=== PATIENT | male | born 1945 | race Caucasian/White ===

== ENCOUNTER 2016-08-25 11:12 | Emergency (ER) | payer MEDICARE, MEDICAID ==
[2016-08-25] MEDS ORDERED: Ketorolac Tromethamine 30 MG/ML VIAL ONE (11:56)
--- NOTE | 2016-08-25 13:02 | PICIS ---
[facility] EMERGENCY RECORD TRIAGE (FriAug 25, 2016 11:27 AWAT) TRIAGE NOTES: LEFT LEG PAIN- CHRONIC, BUT UNBEARABLE NOW. (FriAug 25, 2016 11:27 AWAT) PATIENT: NAME: Moy Boyle, AGE: 71, GENDER: male, : Sat 1945, TIME OF GREET: FriAug 25, 2016 11:12, PREFERRED LANGUAGE: Israeli, ETHNICITY: Not or , FALL RISK: NO, ECODE BILLING MAP: [facility], SSN: [id number], Zip Code: [address], KG WEIGHT: 92.99, PHONE: , , , PERSON ID: [id number], PCP: DO Castañeda Hillary. (FriAug 25, 2016 11:27 AWAT) COMPLAINT: LEG PAIN. ([place] Aug 25, 2016 11:27 AWAT) ADMISSION: URGENCY: 4 Non Urgent, ADMISSION SOURCE: Home, TRANSPORT: Walk-in, BED: ED -05. ([place] Aug 25, 2016 11:27 AWAT) SIRS SCORING: Heart Rate 55-109 (0), Temp range 96.8-101.1 (0), respiratory rate 12-24 (0), Mental Status altered: no (0). (11:37 AWAT) TRIAGE SCREENING: Suicide risk, PT LAUGHES ABOUT THIS, AND SAYS, "WELL HELL NO I'M NOT SUICIDAL, BUT IF THIS PAIN KEEPS ON I MIGHT GET THAT WAY"... (11:37 AWAT) PROVIDERS: TRIAGE NURSE: Philippe Arroyo RN. ([place] Aug 25, 2016 11:27 AWAT) VITAL SIGNS: BP 163/85, Pulse 69, Resp 18, Temp 97.0, (Tympanic), Pain 10, (Constant), O2 Sat 97, on Room Air, Time 08/25/2016 11:26. (11:26 AWAT) PREVIOUS VISIT ALLERGIES: amLODIPine, cetirizine, traMADol, UltRAM. ([place] Aug 25, 2016 11:27 AWAT) amLODIPine, cetirizine, traMADol, UltRAM. (11:37 AWAT) KNOWN ALLERGIES ALL STATINS (Unconfirmed) amLODIPine: Severity: Severe, Source: Other Medical Record, - SWELLING cetirizine: Source: Other Medical Record Cipro tablet codeine sulfate: Source: Patient, - it makes the pain worse traMADol: Source: Patient, - makes me claustrophobic Tylenol-Codeine #3 UltRAM (Unconfirmed): Source: Other Medical Record, - CLAUSTROPHOBIC CURRENT MEDICATIONS (11:32 AWAT) Aspirin Childrens: TABLET, CHEWABLE : Strength - 81 mg : ORAL Patient Dose: 81 mg Oral once a day. lisinopril: TABLET : Strength - 5 mg : ORAL Patient Dose: 5 mg Oral 2 times a day. Coreg: TABLET : Strength - 3.125 mg : ORAL Patient Dose: 3.125 mg Oral 2 times a day. &a-1R&a+25V*p+0X*v4794X*c202B*c15G*c2P*p-0X&a-25V&a+1R Name: Moy Boyle : 1945 M71 MedRec: [id number] AcctNum: [id number] Prepared: Maria C Aug 25, 2016 15:32 by Interface Page 1 of 6 pMD [facility] EMERGENCY RECORD gabapentin: CAPSULE : Strength - 300 mg : ORAL Patient Dose: 300 mg Oral 2 times a day (before meals). Indocin: CAPSULE : Strength - 50 mg : ORAL Patient Dose: * tab(s) Oral See Notes.2 TWICE A DAY FOR 3 DAYS, THEN 1 TWICE A DAY FOR 3 DAYS, THEN 1 DAILY. Valium: TABLET : Strength - 5 mg : ORAL Patient Dose: 1 tab(s) Oral every 6 hours PRN.FOR TIGHTNESS OR MUSCLE SPASMS IN THE BACK. VITAL SIGNS VITAL SIGNS: BP: 163/85, Pulse: 69, Resp: 18, Temp: 97.0 (Tympanic), Pain: 10 (Constant), O2 sat: 97 on Room Air, Time: 08/25/2016 11:26. (11:26 AWAT) BP: 143/73, Pulse: 66, Resp: 16, Temp: 97.2, Pain: 10, O2 sat: 96 on RA, Time: 08/25/2016 12:10. (12:10 AWAT) NURSING ASSESSMENT: EXTREMITY LOWER (11:35 AWAT) CONSTITUTIONAL: Complex assessment performed, Patient arrives ambulatory, Unsteady gait, USES A WALKER FOR BALANCE., History obtained from patient, Patient appears comfortable, Patient cooperative, Patient alert, Oriented to person, place and time, Skin warm, Skin dry, Skin normal in color, Mucous membranes pink, Mucous membranes moist, Patient is well-groomed, Patient complains of BILATERAL LEG PAIN, MORE TO THE LEFT., CHRONIC PAIN DUE TO BACK PROBLEMS. PAIN: aching pain, BILATERAL LEGS PRIMARILY, ALONG WITH THE CHRONIC BACK PAIN.,, on a scale 0-10 patient rates pain as 10, PT LAUGHES, AND SAYS IT'S 10/10. IT'S MISREABLE. SAYS HE IS OUT OF PAIN MEDICATION, AND TYLENOL/MOTRIN/ADVIL DOESN'T TOUCH IT.., Pain exacerbated by nothing, Nothing has been tried to alleviate the pain. LEFT LOWER EXTREMITY: Left lower extremity assessment findings include capillary refill less than 2 seconds, Skin color normal, Skin temperature warm, Distal sensation intact, Muscle tone normal, +1 edema present, dorsalis pedis pulse is +2, Notes: SLIGHT BLE EDEMA, COLOR GOOD, PULSES PALPABLE. RIGHT LOWER EXTREMITY: Right lower extremity assessment findings include capillary refill less than 2 seconds, Skin color normal, Skin temperature warm, Distal sensation intact, Muscle tone normal, +1 edema present, dorsalis pedis pulse is +2, Notes: SLIGHT BLE EDEMA, COLOR GOOD, PULSES PALPABLE. NOTES: Patient tolerated procedure well. SAFETY: Side rails up, Cart/Stretcher in lowest position, Call light within reach, Hospital ID band on, Physician notified of above findings. NURSING PROCEDURE: DISCHARGE NOTE (12:10 AWAT) &a-1R&a+25V*p+0X*u9373T*c202B*c15G*c2P*p-0X&a-25V&a+1R Name: Moy Boyle : 1945 M71 MedRec: [id number] AcctNum: [id number] Prepared: Maria C Aug 25, 2016 15:32 by Interface Page 2 of 6 pMD [facility] EMERGENCY RECORD DISCHARGE: Patient discharged to home, ambulating with walker, driving self, unaccompanied, Summary of Care printed/ provided, Patient requested and was provided an electronic copy of Discharge Instructions, Transition record given to patient, Discharge instructions given to patient, Simple or moderate discharge teaching performed, by obed barahona, Prescriptions given and instructions on side effects given, Name of prescription(s) given: TYLENOL W CDN, Above person(s) verbalized understanding of discharge instructions and follow-up care, Patient discharged by, OBED BARAHONA, Patient treated and evaluated by physician. BELONGINGS: Belongings remain with patient, Valuables remain with patient. NOTES: Emotional support needed and given, Patient tolerated procedure well. SAFETY: Side rails up, Cart/Stretcher in lowest position, Call light within reach, Hospital ID band on, Physician notified of above findings. VITAL SIGNS: BP: 143, / 73, Pulse: 66, Resp: 16, Temp: 97.2, Pain: 10, O2 sat: 96, on: RA, Time: 1210. MEDICATION ADMINISTRATION SUMMARY Drug Name: Toradol intramuscular, Dose Ordered: 30 mg, Route: Intramuscular, Status: Given, Time: 11:57 08/25/2016, Detailed record available in Medication Service section. MEDICATION SERVICE (11:57 LHOD) Toradol intramuscular: Order: Toradol intramuscular (ketorolac tromethamine) - Dose: 30 mg : Intramuscular POTENTIAL CONTRAINDICATED INTERACTION: Aspirin Childrens - Benefits outweigh risks Ordered by: Roge Ulrich MD Entered by: MD Maria C Bunn Aug 25, 2016 11:45 , Acknowledged by: JUN Carpenter Aug 25, 2016 11:55 Documented as given by: JUN Carpenter Aug 25, 2016 11:57 Patient, Medication, Dose, Route and Time verified prior to administration. IM medication, Amount given: 30mg, Medication administered to right buttock, Correct patient, time, route, dose and medication confirmed prior to administration, Patient advised of actions and side-effects prior to administration, Allergies confirmed and medications reviewed prior to administration, Administered by obed barahona, Patient in position of comfort, Side rails up, Cart in lowest position. HPI GENERAL (11:53 LHOD) CHIEF COMPLAINT: Patient presents for evaluation of BILATERAL LEG PAIN. HISTORIAN: History provided by patient. TIME COURSE: PT REPORTS HE HAS HAD BILATERAL LEG PAIN SINCE EARLY JUNE WHEN HE HAD A LUMBAR STEROID INJECTION BY &a-1R&a+25V*p+0X*n2267Y*c202B*c15G*c2P*p-0X&a-25V&a+1R Name: Moy Boyle : 1945 M71 MedRec: [id number] AcctNum: [id number] Prepared: Maria C Aug 25, 2016 15:32 by Interface Page 3 of 6 pMD [facility] EMERGENCY RECORD ALEKSANDR. PT REPORTS HE CONTINUES TAKING MELOXICAM AND GABAPENTIN WITHOUT RELIEF. NO RECENT TRAUMA. REPORTS HE HAS AN APPOINTMENT "WITH A SURGEON" ON August. ROS (11:55 LHOD) CONSTITUTIONAL: Historian denies fever. CARDIOVASCULAR: Historian denies chest pain, denies edema. RESPIRATORY: Historian denies shortness of breath. GI: Historian denies abdominal pain, denies nausea, denies vomiting. UMBILICAL HERNIA, HE REPORTS SINCE STEROID INJECTION. GENITOURINARY MALE: Historian denies hematuria. MUSCULOSKELETAL: Historian reports back pain, denies neck pain. PAIN BOTH LEGS. SKIN: Historian denies rash. NEUROLOGIC: Historian denies headache, REPORTS SOME NUMBNESS OF RIGHT LEG SINCE JUNE. HEMO/LYMPHATIC: Historian denies easy bruising. NOTES: All systems reviewed, negative except as described above. 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 COPD. (11:37 AWAT) MALE SURGICAL HISTORY: Surgical history of coronary artery bypass graft surgery, three vessels, Surgical history of hernia repair, LUMBAR STEROID INJECTION Surgical history of coronary artery bypass graft surgery, three vessels, Date of surgery 09/2014, DOUBLE HERNIA - [facility] 1965.. (11:37 AWAT) PSYCHIATRIC HISTORY: Notes: DENIES. (11:37 AWAT) SOCIAL HISTORY: Patient denies alcohol use, Patient is a former drug user, abused marijuana, Patient is a former tobacco user, Patient denies alcohol use, Patient denies drug use, Patient is a former tobacco user, smoked cigarettes, Lives at home, alone, Patient denies alcohol use, Patient denies drug use, Patient is a former tobacco user, Lives at home, smoked cigarettes, Patient quit smoking more than 10 years ago. (11:37 AWAT) NOTES: Nursing records reviewed. (15:26 LHOD) PHYSICAL EXAM (15:24 LHOD) CONSTITUTIONAL: Vital signs reviewed, Patient afebrile, Pulse normal, Blood pressure, hypertensive, Respiratory rate normal, Patient alert and oriented to person, place and time, NO OBVIOUS DISTRESS. &a-1R&a+25V*p+0X*v0852C*c202B*c15G*c2P*p-0X&a-25V&a+1R Name: Moy Boyle : 1945 M71 MedRec: [id number] AcctNum: [id number] Prepared: Maria C Aug 25, 2016 15:32 by Interface Page 4 of 6 pMD [facility] EMERGENCY RECORD HEAD: Head exam included findings of head atraumatic. RESPIRATORY CHEST: Respiratory exam included findings of no respiratory distress, Breath sounds clear. CARDIOVASCULAR: Cardiovascular exam included findings of heart rate regular rate and rhythm. ABDOMEN MALE: Abdominal exam included findings of abdomen nontender. BACK: Back exam included findings of normal inspection, range of motion normal, no tenderness, no pain with straight leg raise, PT ABLE TO SIT UP AND LAY DOWN WITHOUT SIGNIFICANT PAIN. UPPER EXTREMITY: Upper extremity exam normal. LOWER EXTREMITY: Lower extremity exam normal, Pedal pulse normal, no edema, no calf tenderness. NEURO: Neuro exam findings include patient oriented to person, place and time, Speech normal. SKIN: no rash. EVENTS TRANSFER: Triage to Emergency Main ED -05. (Maria C Aug 25, 2016 11:27 AWAT) Removed from Emergency Main ED -05. (12:21 AWAT) PROBLEM LIST No recorded problems DIAGNOSIS (11:46 LHOD) FINAL: PRIMARY: BILATERAL NEUROPATHIC LEG PAINS. DISPOSITION PATIENT: Disposition Type: Discharge, Disposition: *Discharge Home, Condition: Good. (11:46 LHOD) Patient left the department. (12:21 AWAT) INSTRUCTION (11:49 LHOD) DISCHARGE: NEUROPATHY, PERIPHERAL. FOLLOWUP: DO Castañeda Hillary, [facility], [address] [place] [id number], , Follow up with Primary Care Physician in 3-4 days, Follow up with Specialist as soon as possible. SPECIAL: CONTINUE YOUR MELOXICAM. CONTACT OR YOUR PRIMARY DOCTOR TOMORROW FOR FOLLOW UP. PRESCRIPTION (11:48 LHOD) Tylenol-Codeine #3: TABLET : 300 mg-30 mg : ORAL : Quantity: 1-2 Unit: tab(s) Route: ORAL Schedule: every 4 hours prn Dispense: 30 May substitute. Refills: No Refills POTENTIAL ALLERGY REACTION: 'codeine sulfate [codeine/codeine sulfate]', 'traMADol [tramadol/tramadol HCl]', 'Tylenol-Codeine #3 [acetaminophen/codeine/codeine phosphate]', 'UltRAM &a-1R&a+25V*p+0X*a6735X*c202B*c15G*c2P*p-0X&a-25V&a+1R Name: Moy Boyle : 1945 M71 MedRec: [id number] AcctNum: [id number] Prepared: Maria C Aug 25, 2016 15:32 by Interface Page 5 of 6 pMD [facility] EMERGENCY RECORD [tramadol/tramadol HCl]' Override Rationale: Not a true drug allergy. NOTES: No Refills. IMAGING (12:16 AWAT) *DISCHARGE INSTRUCTIONS RECEIPT: Image captured from scanner. *SUPPLY CHARGE SHEET: Image captured from scanner. ADMIN (15:26 LHOD) DIGITAL SIGNATURE: MD Ulrich Lefayne. Royal: AWAT=JUN Arroyo, Philippe LHOD=MD Ulrich Lefayne &a-1R&a+25V*p+0X*z1912U*c202B*c15G*c2P*p-0X&a-25V&a+1R Name: Moy Boyle : 1945 M71 MedRec: [id number] AcctNum: [id number] Prepared: Maria C Aug 25, 2016 15:32 by Interface Page 6 of 6 pMD MTDD
== END 2016-08-25 12:10 | disposition home or self-care (01) ==
LOC: MADERS 11:12
DX: G57.93 Unspecified mononeuropathy of bilateral lower limbs (principal); I25.2 Old myocardial infarction; I10 Essential (primary) hypertension; E78.5 Hyperlipidemia, unspecified; Z87.891 Personal history of nicotine dependence
CPT/HCPCS: 96372; J1885

== ENCOUNTER 2016-10-28 16:23 | Emergency (ER) | payer MEDICARE, MEDICAID ==
[2016-10-28] MEDS ORDERED: Ketorolac Tromethamine 30 MG/ML VIAL ONE (17:42)
== END 2016-10-28 18:05 | disposition home or self-care (01) ==
LOC: MADERS 16:23
DX: G89.18 Other acute postprocedural pain (principal); M54.6 Pain in thoracic spine; I25.10 Atherosclerotic heart disease of native coronary artery without angina pectoris; I25.2 Old myocardial infarction; J44.9 Chronic obstructive pulmonary disease, unspecified; E78.5 Hyperlipidemia, unspecified; E78.00 Pure hypercholesterolemia, unspecified; F17.210 Nicotine dependence, cigarettes, uncomplicated
CPT/HCPCS: 96372; J1885

== ENCOUNTER 2017-01-18 23:30 | Emergency (ER) | payer MEDICARE, MEDICAID ==
[2017-01-19] MEDS ORDERED: Fluconazole 100 MG TAB ONE (00:46)
[2017-01-19 00:53] LABS: #Lymphocytes 1.6 thou/uL (1.20-3.40); #Monocytes 1.5 thou/uL (0.11-0.59); #Neutrophils 9.4 thou/uL (1.40-6.50); %Basophils 0.3 % (0.0-1.0); %Eosinophils 0.3 % (0.0-10.0); %Lymphocytes 12.7 % (21.0-51.0); %Monocytes 11.9 % (0.0-10.0); %Neutrophils 74.9 % (42.0-75.0); Hemoglobin 14.2 g/dL (14.0-18.0); Mean Corpuscular HGB CONC 34.5 g/dL (32.0-36.0); Mean Corpuscular Hemoglobin 30.4 pg (27.0-31.0); Mean Platelet Volume 10.5 fL (7.4-10.4); Platelet Count 186 thou/uL (130-400); RBC Distribution Width 12.7 % (11.5-14.5); Red Blood Cell (RBC) Count 4.69 mill/uL (4.70-6.10); White Blood Cell (WBC) Count 12.6 thou/uL (4.8-10.8)
[2017-01-19 01:03] LABS: ALT (SGPT) 21 U/L (8-55); AST (SGOT) 21 U/L (5-34); Albumin 4.2 g/dL (3.4-4.8); Alkaline Phosphatase 79 U/L (40-150); Anion Gap 13 mmol/L (10-20); BUN (Urea Nitrogen) 20 mg/dL (8.4-25.7); Bilirubin, Total 0.5 mg/dL (0.2-1.2); Calc. Creatinine Clearance 0 mL/min (70-130); Calcium 9.4 mg/dL (7.8-10.44); Carbon Dioxide 23 mmol/L (23-31); Chloride 104 mmol/L (98-107); Estimated GFR-MDRD 90; Globulin 2.5 g/dL (2.4-3.5); Glucose 136 mg/dL (83-110); Potassium 4.6 mmol/L (3.5-5.1); Protein, Total 6.7 g/dL (5.8-8.1); Sodium 135 mmol/L (136-145)
[2017-01-19 01:12] LABS: Clarity Clear (Clear); Leukocyte Negative (Negative); Nitrite Negative (Negative); Protein, Urine (Dipstick) Negative (Neg-Trace); pH, Urine 5.5 (5.0-9.0)
[2017-01-19 01:13] LABS: Bacteria/HPF None Seen HPF (None Seen); Bilirubin Negative (Negative); Blood, Urine Trace (Negative); Glucose, Urine (Dipstick) Negative (Negative); Urobilinogen 0.2 mg/dL (0.2-1.0)
== END 2017-01-19 02:51 | disposition home or self-care (01) ==
LOC: MADERS 23:30
DX: N39.0 Urinary tract infection, site not specified (principal); B37.2 Candidiasis of skin and nail; M25.561 Pain in right knee; M25.562 Pain in left knee; M54.5 Low back pain; I25.10 Atherosclerotic heart disease of native coronary artery without angina pectoris; I25.2 Old myocardial infarction; I10 Essential (primary) hypertension; J44.9 Chronic obstructive pulmonary disease, unspecified; E78.5 Hyperlipidemia, unspecified; E78.00 Pure hypercholesterolemia, unspecified; Z87.891 Personal history of nicotine dependence
CPT/HCPCS: 36415; 80053; 81001; 83880; 85025; 87086; 99283

== ENCOUNTER 2017-01-24 04:29 | Emergency (ER) | payer MEDICARE, MEDICAID | END 2017-01-24 05:10 | disposition home or self-care (01) | LOC: MADERS 04:29 | DX: G89.29 Other chronic pain (principal); M54.9 Dorsalgia, unspecified; I25.10 Atherosclerotic heart disease of native coronary artery without angina pectoris; I25.2 Old myocardial infarction; I10 Essential (primary) hypertension; J44.9 Chronic obstructive pulmonary disease, unspecified; E78.5 Hyperlipidemia, unspecified; E78.00 Pure hypercholesterolemia, unspecified; Z87.891 Personal history of nicotine dependence; Z79.82 Long term (current) use of aspirin; Z79.899 Other long term (current) drug therapy | CPT/HCPCS: 99283 ==

== ENCOUNTER 2017-07-26 10:31 | Emergency (ER) | payer MEDICARE, MEDICAID | END 2017-07-26 11:38 | disposition home or self-care (01) | LOC: MADERS 10:31 | DX: Z76.0 Encounter for issue of repeat prescription (principal); I10 Essential (primary) hypertension; I25.10 Atherosclerotic heart disease of native coronary artery without angina pectoris; I25.2 Old myocardial infarction; J44.9 Chronic obstructive pulmonary disease, unspecified; E78.5 Hyperlipidemia, unspecified; Z87.891 Personal history of nicotine dependence; Z79.899 Other long term (current) drug therapy | CPT/HCPCS: 99281 ==

== ENCOUNTER 2017-09-14 08:33 | Emergency (ER) | payer MEDICARE, MEDICAID | END 2017-09-14 09:21 | disposition home or self-care (01) | LOC: MADERS 08:33 | DX: G58.9 Mononeuropathy, unspecified (principal); I10 Essential (primary) hypertension; I25.2 Old myocardial infarction; E78.5 Hyperlipidemia, unspecified; Z87.891 Personal history of nicotine dependence; Z79.899 Other long term (current) drug therapy | CPT/HCPCS: 99281 ==

== ENCOUNTER 2017-11-08 11:39 | Emergency (ER) | payer MEDICARE, MEDICAID ==
[2017-11-08 12:26] LABS: Prothrombin Time 13.1 SEC (12.0-14.7)
[2017-11-08 12:28] LABS: Bilirubin Negative (Negative); Blood, Urine Negative (Negative); Clarity Clear (Clear); Glucose, Urine (Dipstick) Negative (Negative); Leukocyte Negative (Negative); Nitrite Negative (Negative); Protein, Urine (Dipstick) Negative (Neg-Trace); Specific Gravity, Urine 1.015 (1.005-1.030); Urobilinogen 0.2 mg/dL (0.2-1.0); pH, Urine 6.5 (5.0-9.0)
[2017-11-08 12:30] LABS: Hemoglobin 15.8 g/dL (14.0-18.0); Mean Corpuscular HGB CONC 32.3 g/dL (32.0-36.0); Mean Corpuscular Hemoglobin 29.3 pg (27.0-31.0); Mean Corpuscular Volume 90.7 fL (80.0-94.0); Red Blood Cell (RBC) Count 5.39 mill/uL (4.70-6.10)
[2017-11-08 12:31] LABS: #Basophils 0.1 thou/uL (0.0-0.2); #Eosinphils 0.6 thou/uL (0.0-0.7); #Monocytes 0.9 thou/uL (0.11-0.59); #Neutrophils 4.4 thou/uL (1.40-6.50); %Basophils 1.8 % (0.0-1.0); %Eosinophils 7.6 % (0.0-10.0); %Lymphocytes 24.8 % (21.0-51.0); %Neutrophils 54.9 % (42.0-75.0); Manual Diff?? NO; Mean Platelet Volume 8.9 fL (7.4-10.4); Platelet Count 226 thou/uL (130-400); RBC Distribution Width 14.2 % (11.5-14.5)
[2017-11-08 12:35] LABS: Bacteria/HPF Rare-Few HPF (None Seen); RBC/HPF 0-3 HPF (0-3); Squamous Epithelial 0-3 HPF (0-3); WBC/HPF None Seen HPF (0-3)
[2017-11-08 12:36] LABS: ALT (SGPT) 19 U/L (8-55); AST (SGOT) 22 U/L (5-34); Albumin 4.3 g/dL (3.4-4.8); Alkaline Phosphatase 92 U/L (40-150); Anion Gap 16 mmol/L (10-20); BUN (Urea Nitrogen) 17 mg/dL (8.4-25.7); Bilirubin, Total 0.7 mg/dL (0.2-1.2); Calc. Creatinine Clearance 0 mL/min (70-130); Calcium 10.1 mg/dL (7.8-10.44); Carbon Dioxide 26 mmol/L (23-31); Chloride 102 mmol/L (98-107); Estimated GFR-MDRD 72; Globulin 3.2 g/dL (2.4-3.5); Glucose 99 mg/dL (83-110); Potassium 4.7 mmol/L (3.5-5.1); Protein, Total 7.5 g/dL (5.8-8.1); Sodium 139 mmol/L (136-145)
== END 2017-11-08 13:04 | disposition home or self-care (01) ==
LOC: MADERS 11:39
DX: R42 Dizziness and giddiness (principal); I10 Essential (primary) hypertension; I25.10 Atherosclerotic heart disease of native coronary artery without angina pectoris; I25.2 Old myocardial infarction; J44.9 Chronic obstructive pulmonary disease, unspecified; E78.5 Hyperlipidemia, unspecified; Z87.891 Personal history of nicotine dependence; Z79.899 Other long term (current) drug therapy
CPT/HCPCS: 36415; 80053; 81001; 83880; 85025; 85610; 85652; 85730; 87040; 87086; 99283

== ENCOUNTER 2018-03-05 18:29 | Emergency (ER) | payer MEDICARE, MEDICAID ==
[2018-03-05 19:55] LABS: #Basophils 0.2 thou/uL (0.0-0.2); #Eosinphils 0.9 thou/uL (0.0-0.7); #Lymphocytes 2.1 thou/uL (1.20-3.40); #Monocytes 1.2 thou/uL (0.11-0.59); #Neutrophils 6.3 thou/uL (1.40-6.50); %Basophils 1.5 % (0.0-1.0); %Eosinophils 8.2 % (0.0-10.0); %Lymphocytes 19.6 % (21.0-51.0); %Monocytes 11.6 % (0.0-10.0); %Neutrophils 59.2 % (42.0-75.0); Hemoglobin 14.6 g/dL (14.0-18.0); Mean Corpuscular HGB CONC 31.3 g/dL (32.0-36.0); Mean Corpuscular Hemoglobin 27.2 pg (27.0-31.0); Mean Corpuscular Volume 86.9 fL (78.0-98.0); Mean Platelet Volume 8.5 fL (7.4-10.4); Platelet Count 242 thou/uL (130-400); RBC Distribution Width 14.2 % (11.5-14.5); Red Blood Cell (RBC) Count 5.37 mill/uL (4.70-6.10); White Blood Cell (WBC) Count 10.6 thou/uL (4.8-10.8)
[2018-03-05 20:03] LABS: Prothrombin Time 13.1 SEC (12.0-14.7)
[2018-03-05 20:04] LABS: PTT 34.3 SEC (22.9-36.1)
[2018-03-05 20:13] LABS: ALT (SGPT) 20 U/L (8-55); AST (SGOT) 26 U/L (5-34); Albumin 4.3 g/dL (3.4-4.8); Alkaline Phosphatase 81 U/L (40-150); Anion Gap 17 mmol/L (10-20); BUN (Urea Nitrogen) 19 mg/dL (8.4-25.7); Bilirubin, Total 0.5 mg/dL (0.2-1.2); CK (CPK) 161 U/L (30-200); Calc. Creatinine Clearance 0 mL/min (70-130); Carbon Dioxide 22 mmol/L (23-31); Chloride 101 mmol/L (98-107); Estimated GFR-MDRD 70; Globulin 3.2 g/dL (2.4-3.5); Glucose 85 mg/dL (83-110); Potassium 4.7 mmol/L (3.5-5.1); Protein, Total 7.5 g/dL (5.8-8.1); Sodium 135 mmol/L (136-145)
[2018-03-05 20:15] LABS: Troponin I 0.014 ng/mL (< 0.028)
[2018-03-05 20:24] LABS: CKMB 8.1 ng/mL (0-6.6)
--- NOTE | 2018-03-05 20:26 | RAD ---
PORTABLE UPRIGHT FRONTAL CHEST RADIOGRAPH 03/05/18 COMPARISON: 11/14/14. HISTORY: Tingling. FINDINGS: There is mild increased linear density in both lung bases which could represent scar, volume loss, or mild infiltrate. There is mild blunting of the costophrenic angles which could signify tiny bilatera l pleural effusions and/or pleural thickening/scar. There is prominent degenerative change involving bilateral glenohumeral joints. There is no alveolar edema or lobar consolidation. Midline sternotomy wires are present. IMPRESSION: Mild bibasilar pleural and parenchymal opacity as detailed above. POS: H
== END 2018-03-05 23:35 | disposition home or self-care (01) ==
LOC: MADERS 18:29
DX: M62.89 Other specified disorders of muscle (principal); E03.9 Hypothyroidism, unspecified; I10 Essential (primary) hypertension; I25.10 Atherosclerotic heart disease of native coronary artery without angina pectoris; J44.9 Chronic obstructive pulmonary disease, unspecified; E78.5 Hyperlipidemia, unspecified; Z87.891 Personal history of nicotine dependence; Z79.899 Other long term (current) drug therapy
CPT/HCPCS: 71045; 80053; 82553; 83880; 84443; 84484; 85025; 85610; 85730; 93005

== ENCOUNTER 2018-03-10 07:05 | Emergency (ER) | payer MEDICARE, MEDICAID ==
[2018-03-10] MEDS ORDERED: Ondansetron ODT 4 MG TAB ONE (07:52)
[2018-03-10] MEDS ORDERED: Mag-Al Plus 1200 MG/1200 MG/120 MG/30 ML UDCUP ONE (07:52)
[2018-03-10] MEDS ORDERED: Lidocaine Viscous Sol 2% 15 ml UD Cup ONE (07:52)
[2018-03-10 08:13] LABS: #Basophils 0.2 thou/uL (0.0-0.2); #Eosinphils 0.7 thou/uL (0.0-0.7); #Lymphocytes 1.7 thou/uL (1.20-3.40); #Monocytes 1.3 thou/uL (0.11-0.59); #Neutrophils 7.3 thou/uL (1.40-6.50); %Basophils 1.4 % (0.0-1.0); %Eosinophils 6.4 % (0.0-10.0); %Lymphocytes 15.4 % (21.0-51.0); %Monocytes 11.7 % (0.0-10.0); %Neutrophils 65.2 % (42.0-75.0); Hemoglobin 15.2 g/dL (14.0-18.0); Mean Corpuscular HGB CONC 32.6 g/dL (32.0-36.0); Mean Corpuscular Volume 86.1 fL (78.0-98.0); Mean Platelet Volume 8.1 fL (7.4-10.4); Platelet Count 209 thou/uL (130-400); RBC Distribution Width 13.8 % (11.5-14.5); Red Blood Cell (RBC) Count 5.43 mill/uL (4.70-6.10); White Blood Cell (WBC) Count 11.2 thou/uL (4.8-10.8)
[2018-03-10] MEDS ORDERED: Ketorolac Tromethamine 30 MG/ML VIAL ONE (08:17)
[2018-03-10 08:32] LABS: ALT (SGPT) 20 U/L (8-55); AST (SGOT) 22 U/L (5-34); Albumin 4.3 g/dL (3.4-4.8); Alkaline Phosphatase 82 U/L (40-150); Anion Gap 17 mmol/L (10-20); BUN (Urea Nitrogen) 17 mg/dL (8.4-25.7); Bilirubin, Total 0.8 mg/dL (0.2-1.2); Calc. Creatinine Clearance 0 mL/min (70-130); Calcium 10.5 mg/dL (7.8-10.44); Carbon Dioxide 21 mmol/L (23-31); Chloride 99 mmol/L (98-107); Estimated GFR-MDRD Greater than 90; Globulin 3.1 g/dL (2.4-3.5); Glucose 107 mg/dL (83-110); Lipase 141 U/L (8-78); Potassium 4.8 mmol/L (3.5-5.1); Protein, Total 7.4 g/dL (5.8-8.1); Sodium 132 mmol/L (136-145)
[2018-03-10 08:58] LABS: Bilirubin Negative (Negative); Blood, Urine Negative (Negative); Clarity Clear (Clear); Glucose, Urine (Dipstick) Negative (Negative); Leukocyte Negative (Negative); Nitrite Negative (Negative); Protein, Urine (Dipstick) Negative (Neg-Trace); Urobilinogen 0.2 mg/dL (0.2-1.0)
--- NOTE | 2018-03-10 08:59 | RAD ---
CHEST 1 VIEW: HISTORY: Chest pain. Abdomen pain. COMPARISON: 03/05/18. FINDINGS: Cardiac silhouette is magnified by projection. Pulmonary vasculature upper limits of normal. Medias tinal is midline with postoperative changes and aortic calcification. Mild bibasilar atelectasis. N o lobar consolidation or evidence of pneumothorax. Severe degenerative changes of the shoulders. IMPRESSION: Borderline pulmonary vascular congestion. Chronic-type findings are stable. POS: H
[2018-03-10 09:06] LABS: RBC/HPF 0-3 HPF (0-3)
[2018-03-10 09:07] LABS: Bacteria/HPF Rare-Few HPF (None Seen); Squamous Epithelial 0-3 HPF (0-3); WBC/HPF 0-3 HPF (0-3)
== END 2018-03-10 09:20 | disposition home or self-care (01) ==
LOC: MADERS 07:05
DX: K29.00 Acute gastritis without bleeding (principal); I10 Essential (primary) hypertension; G25.81 Restless legs syndrome; J44.9 Chronic obstructive pulmonary disease, unspecified; E78.5 Hyperlipidemia, unspecified; Z87.891 Personal history of nicotine dependence; Z79.899 Other long term (current) drug therapy
CPT/HCPCS: 71045; 80053; 81001; 82150; 83605; 83690; 85025; 87086; 96374; J1885; Q0162

== ENCOUNTER 2018-09-06 17:16 | Emergency (ER) | payer MEDICARE, MEDICAID ==
[2018-09-06 18:20] LABS: #Basophils 0.1 thou/uL (0.0-0.2); #Eosinphils 1.1 thou/uL (0.0-0.7); #Lymphocytes 1.9 thou/uL (1.20-3.40); #Monocytes 1.1 thou/uL (0.11-0.59); #Neutrophils 6.7 thou/uL (1.40-6.50); %Basophils 0.9 % (0.0-1.0); %Eosinophils 10.5 % (0.0-10.0); %Lymphocytes 17.5 % (21.0-51.0); %Monocytes 9.7 % (0.0-10.0); %Neutrophils 61.4 % (42.0-75.0); Hemoglobin 14.4 g/dL (14.0-18.0); Mean Corpuscular HGB CONC 33.2 g/dL (32.0-36.0); Mean Corpuscular Hemoglobin 29.6 pg (27.0-31.0); Mean Corpuscular Volume 89.1 fL (78.0-98.0); Mean Platelet Volume 7.9 fL (7.4-10.4); Platelet Count 247 thou/uL (130-400); RBC Distribution Width 12.6 % (11.5-14.5); Red Blood Cell (RBC) Count 4.86 mill/uL (4.70-6.10); White Blood Cell (WBC) Count 10.9 thou/uL (4.8-10.8)
[2018-09-06 18:32] LABS: ALT (SGPT) 19 U/L (8-55); AST (SGOT) 22 U/L (5-34); Albumin 4.6 g/dL (3.4-4.8); Alkaline Phosphatase 99 U/L (40-150); Anion Gap 12 mmol/L (10-20); BUN (Urea Nitrogen) 18 mg/dL (8.4-25.7); Bilirubin, Total 0.7 mg/dL (0.2-1.2); Calc. Creatinine Clearance 0 mL/min (70-130); Calcium 10.3 mg/dL (7.8-10.44); Carbon Dioxide 27 mmol/L (23-31); Chloride 88 mmol/L (98-107); Estimated GFR-MDRD 78; Glucose 95 mg/dL (83-110); Potassium 4.4 mmol/L (3.5-5.1); Protein, Total 7.6 g/dL (5.8-8.1); Sodium 123 mmol/L (136-145)
[2018-09-06] MEDS ORDERED: Furosemide 40 MG/4 ML VIAL ONE (18:50)
--- NOTE | 2018-09-06 19:25 | RAD ---
TWO VIEWS RIGHT HIP: Date: 09-06-18 Comparison: None. History: Pain. FINDINGS: There is mild superior joint space narrowing involving the right hip. There is mild lateral acetabula r osteophyte formation. There is no displaced fracture or evidence of dislocation. Please note that t he medial aspect of the superior and inferior pubic rami are not visualized. IMPRESSION: Degenerative change. No displaced fracture. POS: JIMMY
--- NOTE | 2018-09-06 19:53 | RAD ---
FRONTAL RADIOGRAPH CHEST: Date: 09-06-18 Comparison: 03-10-18 History: Dyspnea. FINDINGS: Midline sternotomy wires are present. Heart and mediastinal contours are stable. Stable prominent deg enerative change involving the glenohumeral joint. Evaluation of the lung bases is limited secondary to body habitus and portable technique. No lobar consolidation or alveolar edema. IMPRESSION: No significant interval change. POS: JIMMY
--- NOTE | 2018-09-06 19:57 | RAD ---
THREE VIEWS RIGHT FOOT: Date: 09-06-18 Comparison: None. History: Pain. FINDINGS: Three views of the right foot demonstrates no displaced fracture or dislocation. There is dorsal soft tissue swelling involving the midfoot which could be inflammatory/infectious or post-traumatic in na ture. There is mild enthesophyte formation at the origin of the plantar aponeurosis. IMPRESSION: Nonspecific soft tissue swelling involving the dorsal aspect of the foot. POS: JIMMY
== END 2018-09-06 19:45 | disposition home or self-care (01) ==
LOC: MADERS 17:16
DX: M79.81 Nontraumatic hematoma of soft tissue (principal); E87.1 Hypo-osmolality and hyponatremia; I10 Essential (primary) hypertension; I25.10 Atherosclerotic heart disease of native coronary artery without angina pectoris; I25.2 Old myocardial infarction; E78.5 Hyperlipidemia, unspecified; J44.9 Chronic obstructive pulmonary disease, unspecified; F17.210 Nicotine dependence, cigarettes, uncomplicated; Z79.899 Other long term (current) drug therapy
CPT/HCPCS: 71045; 80053; 83735; 83880; 84484; 85025; 93005; J1940

== ENCOUNTER 2018-12-07 18:31 | Emergency (ER) | payer MEDICARE, MEDICAID ==
[2018-12-07] MEDS ORDERED: Sodium Chloride 0.9% 100 ML ONE (19:40)
[2018-12-07] MEDS ORDERED: cefTRIAXone\\ROCEPHIN 1 GM VIAL ONE (19:40)
[2018-12-07 19:41] LABS: #Basophils 0.1 thou/uL (0.0-0.2); #Lymphocytes 1.7 thou/uL (1.20-3.40); #Monocytes 0.9 thou/uL (0.11-0.59); #Neutrophils 4.8 thou/uL (1.40-6.50); %Basophils 1.4 % (0.0-1.0); %Lymphocytes 19.6 % (21.0-51.0); %Monocytes 10.3 % (0.0-10.0); %Neutrophils 56.7 % (42.0-75.0); Hemoglobin 14.7 g/dL (14.0-18.0); Mean Corpuscular HGB CONC 31.4 g/dL (32.0-36.0); Mean Corpuscular Volume 89.2 fL (78.0-98.0); Mean Platelet Volume 8.6 fL (7.4-10.4); Platelet Count 228 thou/uL (130-400); RBC Distribution Width 13.6 % (11.5-14.5); Red Blood Cell (RBC) Count 5.27 mill/uL (4.70-6.10); White Blood Cell (WBC) Count 8.5 thou/uL (4.8-10.8)
[2018-12-07 19:56] LABS: ALT (SGPT) 9 U/L (8-55); AST (SGOT) 15 U/L (5-34); Albumin 4.5 g/dL (3.4-4.8); Alkaline Phosphatase 118 U/L (40-150); Anion Gap 16 mmol/L (10-20); BUN (Urea Nitrogen) 14 mg/dL (8.4-25.7); Bilirubin, Total 0.7 mg/dL (0.2-1.2); Calc. Creatinine Clearance 0 mL/min (70-130); Calcium 9.6 mg/dL (7.8-10.44); Carbon Dioxide 23 mmol/L (23-31); Chloride 99 mmol/L (98-107); Estimated GFR-MDRD 79; Globulin 2.8 g/dL (2.4-3.5); Glucose 81 mg/dL (83-110); Potassium 4.8 mmol/L (3.5-5.1); Protein, Total 7.3 g/dL (5.8-8.1); Sodium 133 mmol/L (136-145)
--- NOTE | 2018-12-07 20:28 | RAD ---
EXAM: CHEST ONE VIEW: History: Dyspnea, rash on legs. Comparison: 09-06-18 FINDINGS: Post underlying sternotomy. Mild stable increased markings bilaterally, probably chronic lung changes . No confluent pneumonia. Right shoulder joint arthrosis. IMPRESSION: Minimal stable chronic changes. Atherosclerosis of the aorta with prominent ectasia. No significant n ew process. POS: JOSEH
[2018-12-07] MEDS ORDERED: Furosemide 40 MG/4 ML VIAL ONE (20:42)
== END 2018-12-07 21:30 | disposition home or self-care (01) ==
LOC: MADERS 18:31
DX: L03.116 Cellulitis of left lower limb (principal); L03.115 Cellulitis of right lower limb; R60.0 Localized edema; I25.10 Atherosclerotic heart disease of native coronary artery without angina pectoris; I10 Essential (primary) hypertension; I25.2 Old myocardial infarction; E78.5 Hyperlipidemia, unspecified; J44.9 Chronic obstructive pulmonary disease, unspecified; Z87.891 Personal history of nicotine dependence; Z79.82 Long term (current) use of aspirin; Z79.899 Other long term (current) drug therapy
CPT/HCPCS: 71045; 80053; 83880; 84484; 85025; 93005; 96365; 96375; J0696; J1940; J3490

== ENCOUNTER 2019-09-27 09:08 | Emergency (ER) | payer MEDICARE, MEDICAID ==
[2019-09-27 10:11] LABS: #Basophils 0.1 thou/uL (0.0-0.2); #Eosinphils 0.5 thou/uL (0.0-0.7); #Lymphocytes 1.4 thou/uL (1.20-3.40); #Monocytes 0.8 thou/uL (0.11-0.59); #Neutrophils 5.2 thou/uL (1.40-6.50); %Basophils 1.3 % (0.0-1.0); %Eosinophils 6.3 % (0.0-10.0); %Lymphocytes 17.3 % (21.0-51.0); %Monocytes 9.6 % (0.0-10.0); %Neutrophils 65.6 % (42.0-75.0); Hemoglobin 14.2 g/dL (14.0-18.0); Mean Corpuscular HGB CONC 29.8 g/dL (32.0-36.0); Mean Corpuscular Hemoglobin 26.8 pg (27.0-31.0); Mean Corpuscular Volume 89.8 fL (78.0-98.0); Mean Platelet Volume 9.2 fL (7.4-10.4); Platelet Count 179 thou/uL (130-400); RBC Distribution Width 13.9 % (11.5-14.5); Red Blood Cell (RBC) Count 5.29 mill/uL (4.70-6.10)
[2019-09-27 10:12] LABS: MDiff Complete? YES; Manual Diff?? NO
[2019-09-27] MEDS ORDERED: cefTRIAXone\\ROCEPHIN 1 GM VIAL ONE (10:22)
[2019-09-27] MEDS ORDERED: Sulfameth/Trimethoprim DS 800-160mg TAB ONE (10:22)
[2019-09-27 10:23] LABS: ALT (SGPT) 22 U/L (8-55); AST (SGOT) 21 U/L (5-34); Albumin 4.3 g/dL (3.4-4.8); Alkaline Phosphatase 90 U/L (40-110); Anion Gap 16 mmol/L (10-20); BUN (Urea Nitrogen) 13 mg/dL (8.4-25.7); Calc. Creatinine Clearance 0 mL/min (70-130); Calcium 9.9 mg/dL (7.8-10.44); Carbon Dioxide 26 mmol/L (23-31); Chloride 100 mmol/L (98-107); Estimated GFR-MDRD 76; Glucose 92 mg/dL (83-110); Potassium 4.4 mmol/L (3.5-5.1); Protein, Total 7.3 g/dL (5.8-8.1); Sodium 138 mmol/L (136-145)
== END 2019-09-27 10:39 | disposition home or self-care (01) ==
LOC: MADERS 09:08
DX: L03.116 Cellulitis of left lower limb (principal); I10 Essential (primary) hypertension; I25.10 Atherosclerotic heart disease of native coronary artery without angina pectoris; I25.2 Old myocardial infarction; J44.9 Chronic obstructive pulmonary disease, unspecified; E78.5 Hyperlipidemia, unspecified; E78.00 Pure hypercholesterolemia, unspecified; Z87.891 Personal history of nicotine dependence; Z79.82 Long term (current) use of aspirin
CPT/HCPCS: 36415; 80053; 83605; 85025; 96374; J0696

== ENCOUNTER 2019-10-28 11:55 | Emergency (ER) | payer MEDICARE, MEDICAID ==
[2019-10-28 12:42] LABS: Hemoglobin 13.3 g/dL (14.0-18.0); Mean Corpuscular HGB CONC 30.2 g/dL (32.0-36.0); Mean Corpuscular Hemoglobin 27.6 pg (27.0-31.0); Mean Corpuscular Volume 91.4 fL (78.0-98.0); Mean Platelet Volume 9.7 fL (7.4-10.4); Platelet Count 154 thou/uL (130-400); RBC Distribution Width 15.3 % (11.5-14.5); Red Blood Cell (RBC) Count 4.84 mill/uL (4.70-6.10)
[2019-10-28] MEDS ORDERED: Furosemide 40 MG/4 ML VIAL ONE (12:43)
[2019-10-28 12:53] LABS: Band 6 % (5-11); Lymphocytes 26 % (21-51); MDiff Complete? YES; Manual Diff?? YES; Neutrophil 55 % (42-75)
[2019-10-28 12:54] LABS: Anisocytosis SLIGHT = 6-15 cells (100X) (0-5/hpf); Eosinophils 4 % (0-10); Monocytes 9 % (0-10); Platelet Morphology Comment Appears Adequate
[2019-10-28 13:10] LABS: ALT (SGPT) 20 U/L (8-55); AST (SGOT) 34 U/L (5-34); Albumin 4.2 g/dL (3.4-4.8); Alkaline Phosphatase 91 U/L (40-110); Anion Gap 17 mmol/L (10-20); BUN (Urea Nitrogen) 13 mg/dL (8.4-25.7); Bilirubin, Total 0.6 mg/dL (0.2-1.2); Calc. Creatinine Clearance 0 mL/min (70-130); Calcium 8.9 mg/dL (7.8-10.44); Carbon Dioxide 29 mmol/L (23-31); Chloride 89 mmol/L (98-107); Estimated GFR-MDRD 78; Globulin 3.1 g/dL (2.4-3.5); Glucose 103 mg/dL (83-110); Potassium 4.5 mmol/L (3.5-5.1); Protein, Total 7.3 g/dL (5.8-8.1); Sodium 130 mmol/L (136-145)
--- NOTE | 2019-10-28 13:13 | RAD ---
PA AND LATERAL VIEWS CHEST: HISTORY: Dyspnea. FINDINGS: Comparison is made with the exam of 12/07/2018. Changes of median sternotomy are again seen. The heart size is borderline. The lungs are expanded w ithout lobar consolidation, pneumothoraces, hamzah pulmonary edema, or pleural effusions. IMPRESSION: No acute process. POS: SJDI
== END 2019-10-28 15:40 | disposition home or self-care (01) ==
LOC: MADERS 11:55
DX: I11.0 Hypertensive heart disease with heart failure (principal); I50.9 Heart failure, unspecified; I25.10 Atherosclerotic heart disease of native coronary artery without angina pectoris; I25.2 Old myocardial infarction; J44.9 Chronic obstructive pulmonary disease, unspecified; E78.5 Hyperlipidemia, unspecified; E78.00 Pure hypercholesterolemia, unspecified; Z87.891 Personal history of nicotine dependence; Z79.82 Long term (current) use of aspirin; Z79.899 Other long term (current) drug therapy
CPT/HCPCS: 36415; 71046; 80053; 83880; 84484; 85025; 96374; J1940

== ENCOUNTER 2019-11-08 04:48 | Emergency (ER) | payer MEDICARE, MEDICAID ==
[2019-11-08] MEDS ORDERED: Sodium Chloride 0.9% 500 ML ONE (05:31)
[2019-11-08] MEDS ORDERED: Sodium Chloride 0.9% 100 ML ONE (05:31)
[2019-11-08] MEDS ORDERED: Cefepime 2 GM VIAL ONE (05:32)
[2019-11-08 05:56] LABS: Bilirubin Negative (Negative); Blood, Urine Negative (Negative); Clarity Clear (Clear); Glucose, Urine (Dipstick) Negative (Negative); Leukocyte Negative (Negative); Nitrite Negative (Negative); Protein, Urine (Dipstick) 30 mg/dL (Neg-Trace); Urobilinogen 0.2 mg/dL (Less than 2)
[2019-11-08 05:57] LABS: ALT (SGPT) 28 U/L (8-55); AST (SGOT) 25 U/L (5-34); Albumin 4.1 g/dL (3.4-4.8); Alkaline Phosphatase 71 U/L (40-110); Anion Gap 17 mmol/L (10-20); BUN (Urea Nitrogen) 20 mg/dL (8.4-25.7); Bilirubin, Total 1.1 mg/dL (0.2-1.2); Calc. Creatinine Clearance 0 mL/min (70-130); Carbon Dioxide 25 mmol/L (23-31); Chloride 97 mmol/L (98-107); Estimated GFR-MDRD 69; Globulin 2.3 g/dL (2.4-3.5); Glucose 98 mg/dL (83-110); Potassium 4.9 mmol/L (3.5-5.1); Protein, Total 6.4 g/dL (5.8-8.1); Sodium 134 mmol/L (136-145)
[2019-11-08 06:00] LABS: Band 6 % (5-11); Hemoglobin 12.9 g/dL (14.0-18.0); Lymphocytes 12 % (21-51); MDiff Complete? YES; Mean Corpuscular HGB CONC 29.7 g/dL (32.0-36.0); Mean Corpuscular Hemoglobin 27.9 pg (27.0-31.0); Mean Platelet Volume 7.4 fL (7.4-10.4); Monocytes 21 % (0-10); Neutrophil 61 % (42-75); Platelet Count 277 thou/uL (130-400); Red Blood Cell (RBC) Count 4.63 mill/uL (4.70-6.10); White Blood Cell (WBC) Count 11.9 thou/uL (4.8-10.8)
[2019-11-08 06:05] LABS: RBC/HPF 0-3 HPF (0-3); Squamous Epithelial 0-3 HPF (0-3); WBC/HPF 0-3 HPF (0-3)
[2019-11-08] MEDS ORDERED: Acetaminophen 500 MG TAB ONE (06:05)
[2019-11-08 06:06] LABS: Bacteria/HPF Rare-Few HPF (None Seen)
[2019-11-08] MEDS ORDERED: Oseltamivir 75 MG CAP ONE (06:12)
[2019-11-08] MEDS ORDERED: Sodium Chloride 0.9% 1,000 ML ONE (06:15)
--- NOTE | 2019-11-08 07:50 | RAD ---
CHEST 1 VIEW: INDICATION: History of cough, shortness of breath, and fever. COMPARISON: Prior exam dated 10/30/2019. FINDINGS: No airspace consolidation is evident. Heart size remains mildly prominent. Midline sternotomy ye es are stable-appearing. No pleural effusion or pneumothorax is evident. Advanced degenerative mendieta ge of both glenohumeral joints is similar-appearing. IMPRESSION: No acute cardiopulmonary abnormality. POS: BH
== END 2019-11-08 06:55 | disposition short-term general hospital (02) ==
LOC: MADERS 04:48
DX: A41.9 Sepsis, unspecified organism (principal); L03.116 Cellulitis of left lower limb; J11.1 Influenza due to unidentified influenza virus with other respiratory manifestations; I25.10 Atherosclerotic heart disease of native coronary artery without angina pectoris; I25.2 Old myocardial infarction; I10 Essential (primary) hypertension; E78.5 Hyperlipidemia, unspecified; E78.00 Pure hypercholesterolemia, unspecified; Z87.891 Personal history of nicotine dependence; Z79.82 Long term (current) use of aspirin; Z79.899 Other long term (current) drug therapy
CPT/HCPCS: 36415; 71045; 80053; 81003; 81015; 83605; 83880; 84484; 85025; 87040; 87086; 87804; 93005; 96365; 96367; J0692; J3370; J3490; J7050

== ENCOUNTER 2020-03-01 18:49 | Emergency (ER) | payer MEDICARE, MEDICAID ==
[2020-03-01 19:51] LABS: #Lymphocytes 0.8 thou/uL (1.20-3.40); #Monocytes 0.3 thou/uL (0.11-0.59); #Neutrophils 7.2 thou/uL (1.40-6.50); %Basophils 0.5 % (0.0-1.0); %Eosinophils 0.2 % (0.0-10.0); %Lymphocytes 9.8 % (21.0-51.0); %Monocytes 3.1 % (0.0-10.0); %Neutrophils 86.4 % (42.0-75.0); Hemoglobin 13.9 g/dL (14.0-18.0); Mean Corpuscular HGB CONC 30.6 g/dL (32.0-36.0); Mean Corpuscular Hemoglobin 28.9 pg (27.0-31.0); Mean Corpuscular Volume 94.4 fL (78.0-98.0); Platelet Count 206 thou/uL (130-400); RBC Distribution Width 14.8 % (11.5-14.5); White Blood Cell (WBC) Count 8.3 thou/uL (4.8-10.8)
[2020-03-01] MEDS ORDERED: Aspirin Chewable 81 MG TAB ONE (19:51)
[2020-03-01] MEDS ORDERED: Furosemide 40 MG/4 ML VIAL ONE (19:51)
--- NOTE | 2020-03-01 20:06 | RAD ---
RADIOGRAPH CHEST 1 VIEW: DATE: 03/01/2020 HISTORY: 74 year old male with dyspnea. COMPARISON: 11/09/2019 FINDINGS: The thoracic aorta is tortuous and ectatic. There is no evidence of airspace density, pulmonary edema , or pneumothorax. The lateral costophrenic angles are not effaced. Chronic changes at the bases of the bilateral lower lobes. Sternotomy wires. No cardiomegaly. No interval change. IMPRESSION: 1) No acute cardiopulmonary findings. 2) ectasia of thoracic aorta. 3) chronic bibasilar pulmonary changes.
[2020-03-01 20:10] LABS: ALT (SGPT) 21 U/L (8-55); AST (SGOT) 26 U/L (5-34); Albumin 4.2 g/dL (3.4-4.8); Alkaline Phosphatase 87 U/L (40-110); Anion Gap 20 mmol/L (10-20); BUN (Urea Nitrogen) 19 mg/dL (8.4-25.7); Bilirubin, Total 0.7 mg/dL (0.2-1.2); CK (CPK) 77 U/L (30-200); Calc. Creatinine Clearance 0 mL/min (70-130); Calcium 9.7 mg/dL (7.8-10.44); Carbon Dioxide 25 mmol/L (23-31); Chloride 97 mmol/L (98-107); Estimated GFR-MDRD 53; Glucose 199 mg/dL (83-110); Potassium 4.5 mmol/L (3.5-5.1); Protein, Total 7.2 g/dL (5.8-8.1); Sodium 137 mmol/L (136-145)
[2020-03-01 20:16] LABS: Bilirubin Negative (Negative); Blood, Urine Negative (Negative); Clarity Clear (Clear); Glucose, Urine (Dipstick) Negative (Negative); Ketone, Urine Negative (Negative); Leukocyte Negative (Negative); Nitrite Negative (Negative); Protein, Urine (Dipstick) Negative (Neg-Trace); Specific Gravity, Urine 1.015 (1.005-1.030); Urobilinogen 0.2 mg/dL (Less than 2); pH, Urine 7.5 (5.0-9.0)
== END 2020-03-01 21:45 | disposition home or self-care (01) ==
LOC: MADERS 18:49
DX: I11.0 Hypertensive heart disease with heart failure (principal); I50.9 Heart failure, unspecified; E78.00 Pure hypercholesterolemia, unspecified; E78.5 Hyperlipidemia, unspecified; I25.10 Atherosclerotic heart disease of native coronary artery without angina pectoris; I25.2 Old myocardial infarction; J44.9 Chronic obstructive pulmonary disease, unspecified; Z87.891 Personal history of nicotine dependence; Z79.899 Other long term (current) drug therapy; Z79.82 Long term (current) use of aspirin
CPT/HCPCS: 71045; 80053; 81003; 82550; 83880; 84484; 85025; 93005; 96374; J1940

== ENCOUNTER 2020-08-22 14:43 | Inpatient (IN) | payer MEDICARE, MEDICAID ==
[2020-08-22] MEDS ORDERED: Silver Sulfadiazine 50 GM JAR TP SCH ×2 (17:45→21:00)
[2020-08-22] MEDS ORDERED: Budesonide 0.5 MG/2 ML NEB NEB SCH ×2 (19:00→21:00)
[2020-08-22] MEDS: Budesonide 0.5 MG/2 ML NEB NEB SCH (20:34)
[2020-08-22] MEDS: Gabapentin 300 MG CAP PO SCH (20:36)
[2020-08-22] MEDS: Pramipexole Di-HCl 0.25 MG TAB PO SCH (20:36)
[2020-08-22] MEDS: Senokot S 8.6-50 MG TAB PO SCH (20:36)
[2020-08-22] MEDS: Carvedilol 3.125 MG TAB PO SCH (20:37)
[2020-08-22] MEDS: Keri Lotion 15 oz BOT TOP SCH (20:40)
[2020-08-22] MEDS: Ipratropium Bromide 2.5 ml Neb NEB SCH (20:50)
[2020-08-22] MEDS ORDERED: Cephalexin 250 MG CAP PO SCH (21:00)
--- NOTE | 2020-08-23 05:09 | HP ---
CHIEF COMPLAINT: Weakness and infection in lower leg. HISTORY OF PRESENT ILLNESS: The patient is a 75-year-old white male, who has a history of COPD, for which he is on supplemental O2 when needed, diastolic heart failure, chronic kidney disease, venous insufficiency of the lower extremities, and coronary artery disease. He was admitted to [facility] from 08/14/20 until 08/22/20 for increased swelling in his lower extremities with bilateral cellulitis. This was treated with elevation of the legs. Two blood cultures were negative and he was treated with cefepime and vancomycin with improvement. He underwent a venous Doppler of the lower extremities, which showed no evidence of DVT. His legs improved, but still were left with some swelling, some superficial ulcerations, and still some redness. He was switched to oral antibiotics with cephalexin. He was left extremely weak, had been up and walked very short distance, but was still very weak. Also on presentation to the hospital, he had acute kidney injury along with hyperkalemia that resolved. He was discharged to [facility] on 08/22/2020 for continued treatment of the cellulitis of the legs, for treatment of venous insufficiency and superficial ulcerations and for PT and OT due to his severe generalized weakness. The patient was seen soon after his admission and he was able to tell me that he had been in the hospital for the infection. Prior to the hospitalization, he said he had been living at home where he lives alone, but has a caregiver that comes in and stays 5 days a week and assists him. He is ambulatory with the use of a walker and [place] drive [place]. He said he is feeling better, but having a lot of trouble with the jumpiness in his legs from the restless legs syndrome. He also was noted to have a lot of bruising on the left leg, but does not know how that occurred. PAST MEDICAL HISTORY: Hospitalized at [facility] from 08/14 until 08/22/20 for bilateral cellulitis of the lower extremity, complicated by some superficial ulcerations. Blood cultures negative and on presentation, acute kidney injury with hyperkalemia and he also had some acute on chronic diastolic heart failure with worsening bilateral edema. He has coronary artery disease, for which he has undergone coronary artery bypass. COPD. He has O2 at home that he uses as needed, hypertension, dyslipidemia, restless legs syndrome, chronic back pain, chronic bilateral edema from probably venous insufficiency. He did have an echocardiogram while hospitalized at [facility] on 08/15/2020 that showed left ventricle size normal, EF was 55% to 60%. It was a technically difficult study due to patient's immobility. No notation was made about diastolic function. The patient has had coronary artery bypass, circumcision, bilateral hernia repair. The patient is a former smoker, also does not drink any alcohol, but was formerly a heavy drinker, but quit 30 years ago. PRESENT MEDICINES: 1. Spiriva 18 mcg one inhalation daily. 2. Pramipexole 0.5 mg at bedtime. 3. Gabapentin 600 mg b.i.d. 4. Ipratropium and albuterol by nebulizer q.i.d. and p.r.n. 5. Carvedilol 3.125 mg b.i.d. 6. Aspirin 81 mg daily. 7. Acetaminophen 650 mg every 4 hours as needed. 8. Senokot-S 2 b.i.d. 9. Pantoprazole 40 mg daily. 10. Cephalexin 500 mg t.i.d. 11. Pulmicort 0.5 mg by nebulizer b.i.d. 12. Torsemide 20 mg daily. 13. Spironolactone 25 mg daily. 14. Florastor 250 mg daily. ALLERGIES: TRAMADOL. REVIEW OF SYSTEMS: GENERAL: The patient said he is doing better. He feels better. EYES, EARS, NOSE, AND THROAT: No complaint. PULMONARY: No shortness of breath. The patient says he has oxygen at home that he only uses when he needs it. CARDIOVASCULAR: No chest pain. GASTROINTESTINAL: The patient said he has not had any nausea or vomiting. He has had no diarrhea. GENITOURINARY: The patient did have a Badillo catheter initially, but this has been removed. He has been voiding since fine, but has had some trouble with incontinence. HABITS: Tobacco, none. Alcohol, none. Quit drinking about 30 years ago. ADLs; the patient said that he has a caregiver that comes in 5 days a week to assist him. Ordinarily, he gets around and able to do for himself and uses a walker to assist with ambulation. CODE STATUS: Unknown, suspect is a full code. PHYSICAL EXAMINATION: GENERAL: Shows a pleasant 75-year-old white male, who is very talkative and has a little trouble staying on topic, had a little trouble explaining all that had happened to him. He is alert and appears comfortable. VITAL SIGNS: Shows a temperature of 97.7, pulse 86, blood pressure 154/88, respirations 18, O2 saturation on room air 93%. Weight 228. HEENT: Head is normocephalic. Eyes, pupils are equal, round, and reactive. Ears, TMs are clear. Nose normal. Mouth and throat, the tongue and buccal mucosa look a little red. NECK: Carotids are equal and strong. No bruits. Thyroid not enlarged. LUNGS: Clear. HEART: Regular rate. ABDOMEN: Obese. No organomegaly and nontender. There are multiple areas of bruising across the lower abdomen and toward he flanks from his Lovenox injections EXTREMITIES: Lower extremities, patient has 1+ edema in both lower legs. Left lower leg from mid calf distal is red, a little warm and a little scaly. There are some little superficial ulcerations with scabbing on areas of the leg and one that is open over the anterior lower leg. I could not feel the pulses in the feet. The feet are warm. The right leg has just been dressed and the nurses said they have a similar appearance and they have been wrapped. The left leg is more red and the right is more pink, with just scaling. Patient has large amount of bruising over the right thigh, but he is not sure of why that occurred. NEUROLOGIC: The patient is alert, knows he is in the hospital in [place], could correctly identify the day and the date. Had a little trouble reviewing all that had occurred with him at hospital in [place]. IMPRESSION: 1. Severe generalized weakness. a. Complicated by gait abnormality. b. Secondary to deconditioning from his recent hospitalization and edema and infection in the lower legs. 2. Hospitalized at [facility] on 08/14/20 for;. a. Bilateral cellulitis, lower extremity. b. Acute kidney injury with hyperkalemia that has resolved. c. Acute on chronic diastolic heart failure. 3. Chronic obstructive pulmonary disease. a. Has a history of hypoxic respiratory failure, for which he uses supplemental O2 at home, but only uses it p.r.n. 4. Acute on chronic diastolic heart failure. a. No evidence of acute failure presently. 5. Cellulitis of the lower extremities bilateral. a. Hospitalized from 08/14 until 08/22 and treated with cefepime and vancomycin and now on oral cephalexin. b. Improving, but not resolved. c. Complicated by multiple ulcerations. 6. Venous insufficiency of the lower extremities. a. Bilateral venous Doppler studies on 08/15 showed no evidence of DVT. 7. Restless legs syndrome. 8. Coronary artery disease. a. Status post coronary artery bypass. 9. Hypertension. 10. Obesity. 11. Bruising of the upper leg. 12. Chronic low back pain. 13. Oral candidiasis PLAN: The patient has been admitted to the hospital. Will do a followup CBC in the morning and CMP. PT and OT will work with patient. We will continue his fluid restriction of 2 L per 24 hours. The wounds of the legs will be cleaned daily with Hibiclens, small amount of Silvadene cream applied and covered with Adaptic and then the legs wrapped with Kerlix and 2 layers of Lewis bandages to help control the swelling. Prior to the wrapping the leg, on the scaly areas, we will apply Jasmyn lotion with Kenalog 15 ounces/200 mg. We will continue his routine medications. We will place him on DVT prophylaxis with Lovenox. CODE STATUS: Full code. Job ID: [id number] MTDD
[2020-08-23] MEDS: Ipratropium Bromide 2.5 ml Neb NEB SCH ×4 (05:49→21:29)
[2020-08-23 06:03] LABS: #Basophils 0.2 thou/uL (0.0-0.2); #Eosinphils 0.4 thou/uL (0.0-0.7); #Lymphocytes 2.1 thou/uL (1.20-3.40); #Monocytes 1.4 thou/uL (0.11-0.59); #Neutrophils 7.4 thou/uL (1.40-6.50); %Basophils 1.5 % (0.0-1.0); %Eosinophils 3.8 % (0.0-10.0); %Lymphocytes 18.2 % (21.0-51.0); %Monocytes 12.2 % (0.0-10.0); %Neutrophils 64.3 % (42.0-75.0); Hemoglobin 12.2 g/dL (14.0-18.0); Mean Corpuscular HGB CONC 31.4 g/dL (32.0-36.0); Mean Corpuscular Hemoglobin 30.2 pg (27.0-31.0); Mean Platelet Volume 6.8 fL (7.4-10.4); Platelet Count 276 thou/uL (130-400); RBC Distribution Width 14.2 % (11.5-14.5); Red Blood Cell (RBC) Count 4.05 mill/uL (4.70-6.10); White Blood Cell (WBC) Count 11.5 thou/uL (4.8-10.8)
[2020-08-23 06:18] LABS: ALT (SGPT) 40 U/L (8-55); AST (SGOT) 36 U/L (5-34); Albumin 3.9 g/dL (3.4-4.8); Alkaline Phosphatase 60 U/L (40-110); Anion Gap 16 mmol/L (10-20); BUN (Urea Nitrogen) 32 mg/dL (8.4-25.7); Bilirubin, Total 1.5 mg/dL (0.2-1.2); Calc. Creatinine Clearance 85 mL/min (70-130); Calcium 9.3 mg/dL (7.8-10.44); Carbon Dioxide 29 mmol/L (23-31); Chloride 97 mmol/L (98-107); Globulin 2.6 g/dL (2.4-3.5); Glucose 96 mg/dL (83-110); Potassium 3.9 mmol/L (3.5-5.1); Protein, Total 6.5 g/dL (5.8-8.1); Sodium 138 mmol/L (136-145)
[2020-08-23] MEDS ORDERED: Sodium Chloride 0.65% Nasal 44 ML BOT EA NARE PRN (07:46)
[2020-08-23] MEDS: Carvedilol 3.125 MG TAB PO SCH ×2 (08:40→21:25)
[2020-08-23] MEDS: Aspirin 81 mg Enteric Coated Tablet PO SCH (08:40)
[2020-08-23] MEDS: Cephalexin 500 MG CAP PO SCH ×3 (08:41→21:25)
[2020-08-23] MEDS: Torsemide 20 MG TAB PO SCH (08:41)
[2020-08-23] MEDS: Senokot S 8.6-50 MG TAB PO SCH ×2 (08:41→21:29)
[2020-08-23] MEDS: Saccharomyces boulardii 250 MG CAP PO SCH (08:41)
[2020-08-23] MEDS: Enoxaparin Sodium 40 MG/0.4 ML SYRINGE SC SCH (08:42)
[2020-08-23] MEDS: Nystatin 500,000 UNITS/5 ML UDCUP SSW SCH ×4 (08:45→21:58)
[2020-08-23] MEDS: Fluconazole 100 MG TAB PO SCH (08:45)
[2020-08-23] MEDS: Gabapentin 300 MG CAP PO SCH ×2 (08:47→21:27)
[2020-08-23] MEDS ORDERED: Non-Formulary Item 1 EACH (Tiotropium Bromide [Spiriva] 18 MCG Cap.W.Dev) INH SCH (09:00)
[2020-08-23] MEDS: Budesonide 0.5 MG/2 ML NEB NEB SCH ×2 (10:15→21:25)
--- NOTE | 2020-08-23 10:47 | PRG ---
DATE OF SERVICE: 08/23/2020 SUBJECTIVE: The patient said he is feeling better today. He slept good last night. The patient did ask for something for his eyes. He says in the mornings they feel a little irritated. It sounds like at home, he was using just liquid tears. OBJECTIVE: GENERAL: The patient is lying in bed with the head elevated. He is alert, talkative, appears very comfortable in no distress. VITAL SIGNS: His weight is 228, his temperature is 98.2, pulse 89, respirations 18, O2 saturation 93% on room air, blood pressure 125/75. LUNGS: Clear. HEART: Regular rate. ABDOMEN: There are multiple little areas of bruising across the lower abdomen and towards the flanks, probably from his Lovenox injections. EXTREMITIES: There is still bruising in the left upper leg, but this is no worse than what it has been. Both of the legs, the wounds have been dressed and lower legs wrapped with a Kerlix and two layers of 4 inch Lewis bandages. The dressings are dry. The swelling looks well controlled with these dressings. LABORATORY DATA: His lab shows an H and H of 12.2 and 38.9, white cell count 11,500 with 64% segs, 18% lymphocytes, and platelet count of 273,000. Sodium 138, potassium 3.9, BUN 32, creatinine 1.06, GFR 68, total bilirubin 1.5, AST 36, albumin 3.9. ASSESSMENT: 1. Severe generalized weakness. a. Complicated by gait abnormality. b. Secondary to deconditioning from recent hospitalization for edema and infection of the lower legs. c. Improving as of 08/23/2020. 2. Hospitalized at [facility] 08/14 until 08/22/2020 for. a. Bilateral cellulitis of the lower extremities. b. Acute kidney injury with hyperkalemia that has resolved. c. Acute on chronic diastolic heart failure. 3. Chronic obstructive pulmonary disease. a. Has a history of hypoxic respiratory failure for which he uses supplemental O2 at home but only uses it if needed. 4. Acute on chronic diastolic heart failure. a. No evidence of acute heart failure as of 08/23/2020. 5. Cellulitis of the lower extremities, bilateral. a. Hospitalized from 08/14 until 08/22 and treated with IV cefepime and vancomycin and now is on oral cephalexin. b. Complicated by multiple superficial ulcerations of the lower leg. c. Improving as of 08/23. 6. Venous insufficiency of the lower extremities. a. Bilateral venous Doppler studies on 08/15 showed no evidence of deep vein thrombosis. 7. Restless legs syndrome. 8. Coronary artery disease. a. Status post coronary artery bypass. b. Asymptomatic. 9. Hypertension. 10. Obesity. 11. Bruising across the lower abdomen, probably from the Lovenox. 12. Bruising of the upper leg, possibly extravasation from the abdomen. a. Stable as of 08/23. 13. Chronic low back pain. 14. Oral candidiasis. PLAN: We will continue present care. Continue the antibiotics. Continue the present wound care to superficial ulcerations on the legs. PT and OT are working with the patient. We will place patient on Diflucan and Mycostatin for the oral candidiasis. We will place patient on liquid tears as needed for the dry eyes. Job ID: [id number] [facility]
[2020-08-23] MEDS: Artificial Tear Sol 15 ML BOT EA EYE PRN (17:11)
[2020-08-23] MEDS: Silver Sulfadiazine 50 GM TUBE TOP SCH (21:26)
[2020-08-23] MEDS: Keri Lotion 15 oz BOT TOP SCH (21:26)
[2020-08-23] MEDS: Pramipexole Di-HCl 0.25 MG TAB PO SCH (21:28)
[2020-08-24] MEDS: Acetaminophen ER (8hr) 650 MG TAB PO PRN ×3 (01:35→23:50)
[2020-08-24] MEDS: Artificial Tear Sol 15 ML BOT EA EYE PRN ×2 (01:36→22:09)
[2020-08-24] MEDS: Ipratropium Bromide 2.5 ml Neb NEB SCH ×4 (05:18→22:08)
[2020-08-24] MEDS: Cephalexin 500 MG CAP PO SCH ×3 (08:52→22:06)
[2020-08-24] MEDS: Enoxaparin Sodium 40 MG/0.4 ML SYRINGE SC SCH (08:52)
[2020-08-24] MEDS: Senokot S 8.6-50 MG TAB PO SCH ×2 (08:52→22:09)
[2020-08-24] MEDS: Budesonide 0.5 MG/2 ML NEB NEB SCH ×2 (08:52→22:06)
[2020-08-24] MEDS: Nystatin 500,000 UNITS/5 ML UDCUP SSW SCH ×4 (08:52→22:08)
[2020-08-24] MEDS: Torsemide 20 MG TAB PO SCH (08:53)
[2020-08-24] MEDS: Saccharomyces boulardii 250 MG CAP PO SCH (08:53)
[2020-08-24] MEDS: Aspirin 81 mg Enteric Coated Tablet PO SCH (08:53)
[2020-08-24] MEDS: Carvedilol 3.125 MG TAB PO SCH ×2 (08:53→22:06)
[2020-08-24] MEDS: Gabapentin 300 MG CAP PO SCH ×2 (08:53→22:07)
[2020-08-24] MEDS: Fluconazole 100 MG TAB PO SCH (08:53)
[2020-08-24] MEDS: Keri Lotion 15 oz BOT TOP SCH ×2 (08:54→22:07)
--- NOTE | 2020-08-24 10:14 | PRG ---
DATE OF SERVICE: 08/24/2020 SUBJECTIVE: The patient said he is feeling better. The jump in his legs had stopped. The patient said he is walking longer distances. Therapy said he is walking almost all the way to the physical therapy area, which is 150 feet. Nurses report that his legs look better. He has a chronic left leg being a little larger than the right. He continues to have the wound care and the compression dressing is applied. OBJECTIVE: GENERAL: The patient just walking back from his bathroom with his walker, sitting down in a chair. He is alert, talkative, looks like he feels much better. VITAL SIGNS: His temp is 97.4, pulse 81, respirations 20, O2 saturation 92% on room air, and blood pressure 125/81. LUNGS: Clear. HEART: Regular rate. EXTREMITIES: Lower legs, left leg is a little larger than the right, they are both dressed with Kerlix and a 2-layer Lewis bandaging from the base of the toe to just below the knee. ASSESSMENT: 1. Severe generalized weakness. a. Complicated by gait abnormality. b. Secondary to deconditioning from recent hospitalization for edema and cellulitis of the lower extremities. c. Improving, walking much further and transferring easier as of 08/24. 2. Hospitalized at [facility] from 08/14 until 08/22/2020 for: a. Bilateral cellulitis of the lower extremities. b. Acute kidney injury with hyperkalemia, that has resolved. c. [id number] diastolic heart failure. 3. Chronic obstructive pulmonary disease. a. History of hypoxic respiratory failure, for which he uses supplemental O2 at home, but only uses it as needed. 4. Oibnn-hp-yrgivcp diastolic heart failure. a. No evidence of acute heart failure as of 08/24. 5. Cellulitis of the lower extremities, bilateral. a. Hospitalized from 08/14 until 08/22, treated with IV cefepime and vancomycin and now is on oral cephalexin. b. Complicated by multiple superficial ulcerations. c. Continues to improve as of 08/24. 6. Venous insufficiency of the lower extremity. a. Bilateral venous Doppler study on 08/15 showed no evidence of deep vein thrombosis. 7. Restless legs syndrome. a. Controlled as of 08/24. 8. Coronary artery disease. a. Status post coronary artery bypass. b. Asymptomatic. 9. Hypertension. 10. Obesity. 11. Bruising across lower abdomen. a. Probably from the Lovenox injections. b. Bruising on the upper leg more on the left, suspect from extravasation from the abdomen. c. Improving as of 08/24. 1. Chronic low back pain, improved. 2. Oral candidiasis. PLAN: The patient is improving. We will continue his present wound care and compression wraps to control the swelling. Continue PT and OT. Job ID: [id number] [facility]TD[facility]
[2020-08-24] MEDS: Silver Sulfadiazine 50 GM TUBE TOP SCH ×2 (12:20→22:09)
[2020-08-24] MEDS: Pramipexole Di-HCl 0.25 MG TAB PO SCH (22:08)
[2020-08-25] MEDS: Ipratropium Bromide 2.5 ml Neb NEB SCH ×4 (06:16→21:09)
[2020-08-25] MEDS: Aspirin 81 mg Enteric Coated Tablet PO SCH (08:38)
[2020-08-25] MEDS: Fluconazole 100 MG TAB PO SCH (08:38)
[2020-08-25] MEDS: Gabapentin 300 MG CAP PO SCH ×2 (08:38→21:07)
[2020-08-25] MEDS: Senokot S 8.6-50 MG TAB PO SCH ×2 (08:38→21:07)
[2020-08-25] MEDS: Cephalexin 500 MG CAP PO SCH ×3 (08:38→21:08)
[2020-08-25] MEDS: Saccharomyces boulardii 250 MG CAP PO SCH (08:38)
[2020-08-25] MEDS: Nystatin 500,000 UNITS/5 ML UDCUP SSW SCH ×4 (08:38→21:08)
[2020-08-25] MEDS: Carvedilol 3.125 MG TAB PO SCH ×2 (08:38→21:07)
[2020-08-25] MEDS: Torsemide 20 MG TAB PO SCH (08:39)
[2020-08-25] MEDS: Budesonide 0.5 MG/2 ML NEB NEB SCH ×2 (08:39→21:09)
[2020-08-25] MEDS: Enoxaparin Sodium 40 MG/0.4 ML SYRINGE SC SCH (08:39)
[2020-08-25] MEDS: Keri Lotion 15 oz BOT TOP SCH ×2 (08:44→21:10)
[2020-08-25] MEDS: Silver Sulfadiazine 50 GM TUBE TOP SCH ×2 (08:45→21:10)
[2020-08-25] MEDS: Acetaminophen ER (8hr) 650 MG TAB PO PRN ×2 (10:50→21:08)
[2020-08-25] MEDS: Pramipexole Di-HCl 0.25 MG TAB PO SCH (21:08)
[2020-08-26] MEDS: Acetaminophen ER (8hr) 650 MG TAB PO PRN ×3 (00:33→22:35)
--- NOTE | 2020-08-26 05:56 | PRG ---
DATE OF SERVICE: 08/25/2020 SUBJECTIVE: The patient said he has already been to therapy this morning, was able to walk over there. He is feeling stronger and he is having no more jerking in the legs from the restless legs syndrome. His legs feel better. Nurses report that when dressings were changed at night that the legs were looking better. OBJECTIVE: GENERAL: The patient is sitting up in a bedside chair. He is alert, talkative, appears very comfortable, in no distress. VITAL SIGNS: His temperature 97.4, pulse 79, respirations 18, O2 saturation 94% on room air, and blood pressure 117/73. LUNGS: Clear. HEART: Regular rate. EXTREMITIES: The patient has the Kerlix and the double-layer Lewis wraps on the lower legs. ASSESSMENT: 1. Severe generalized weakness. a. Complicated by gait abnormality. b. Secondary to deconditioning from recent hospitalization for edema and cellulitis of the lower extremities. c. Improving, walking much further and transferring easier as of 08/25/2020. 2. Hospitalized at [facility] from 08/14 until 08/22/2020 for. a. Bilateral cellulitis of the lower extremities. b. Acute kidney injury with hyperkalemia that has resolved. c. Acute on chronic diastolic heart failure. 3. Chronic obstructive pulmonary disease. a. History of hypoxic respiratory failure, for which he has supplemental oxygen that he uses as needed. 4. Acute on chronic diastolic heart failure. a. No evidence of acute congestive heart failure as of 08/25/2020. 5. Cellulitis of the lower extremities, bilateral. a. Hospitalized from 08/14 until 08/22. Treated with IV cefepime and vancomycin and now is on cephalexin. b. Complicated by multiple superficial ulcerations. c. Improving as of 08/25/2020. 6. Venous insufficiency of the lower extremity. a. Bilateral venous Doppler studies on 08/15 showed no evidence of deep vein thrombosis. 7. Restless legs syndrome. a. Controlled as of 08/25/2020. 8. Coronary artery disease. a. Status post coronary artery bypass. b. Asymptomatic. 9. Hypertension. 10. Obesity. 11. Bruising across the lower abdomen, probably from. a. Secondary to the Lovenox injections. b. Bruising on the upper leg that are decreasing as of 08/25/2020. 12. Chronic low back pain. 13. Oral candidiasis, improving. PLAN: Continue present care. Continue present wound care. Job ID: [id number] [facility]TDD
[2020-08-26] MEDS: Ipratropium Bromide 2.5 ml Neb NEB SCH ×4 (06:06→21:33)
[2020-08-26] MEDS: Senokot S 8.6-50 MG TAB PO SCH ×3 (08:00→21:34)
[2020-08-26] MEDS: Cephalexin 500 MG CAP PO SCH ×3 (08:42→21:34)
[2020-08-26] MEDS: Torsemide 20 MG TAB PO SCH (08:42)
[2020-08-26] MEDS: Fluconazole 100 MG TAB PO SCH (08:42)
[2020-08-26] MEDS: Saccharomyces boulardii 250 MG CAP PO SCH (08:42)
[2020-08-26] MEDS: Aspirin 81 mg Enteric Coated Tablet PO SCH (08:42)
[2020-08-26] MEDS: Carvedilol 3.125 MG TAB PO SCH ×2 (08:42→21:34)
[2020-08-26] MEDS: Budesonide 0.5 MG/2 ML NEB NEB SCH ×2 (08:43→21:32)
[2020-08-26] MEDS: Enoxaparin Sodium 40 MG/0.4 ML SYRINGE SC SCH (08:43)
[2020-08-26] MEDS: Nystatin 500,000 UNITS/5 ML UDCUP SSW SCH ×4 (08:43→21:33)
[2020-08-26] MEDS: Gabapentin 300 MG CAP PO SCH ×2 (08:46→21:34)
[2020-08-26] MEDS: Pramipexole Di-HCl 0.25 MG TAB PO SCH (21:33)
[2020-08-26] MEDS: Keri Lotion 15 oz BOT TOP SCH (21:34)
[2020-08-26] MEDS: Silver Sulfadiazine 50 GM TUBE TOP SCH (21:35)
[2020-08-27] MEDS: Acetaminophen ER (8hr) 650 MG TAB PO PRN (03:37)
[2020-08-27] MEDS: Ipratropium Bromide 2.5 ml Neb NEB SCH ×4 (05:45→21:00)
[2020-08-27] MEDS: Aspirin 81 mg Enteric Coated Tablet PO SCH (07:53)
[2020-08-27] MEDS: Carvedilol 3.125 MG TAB PO SCH ×2 (07:53→21:00)
[2020-08-27] MEDS: Cephalexin 500 MG CAP PO SCH ×3 (07:53→21:00)
[2020-08-27] MEDS: Nystatin 500,000 UNITS/5 ML UDCUP SSW SCH ×4 (07:54→21:01)
[2020-08-27] MEDS: Budesonide 0.5 MG/2 ML NEB NEB SCH ×2 (07:54→21:00)
[2020-08-27] MEDS: Fluconazole 100 MG TAB PO SCH (07:54)
[2020-08-27] MEDS: Saccharomyces boulardii 250 MG CAP PO SCH (07:54)
[2020-08-27] MEDS: Enoxaparin Sodium 40 MG/0.4 ML SYRINGE SC SCH (07:55)
[2020-08-27] MEDS: Senokot S 8.6-50 MG TAB PO SCH ×2 (07:56→21:01)
[2020-08-27] MEDS: Gabapentin 300 MG CAP PO SCH ×2 (07:56→20:58)
[2020-08-27] MEDS: Torsemide 20 MG TAB PO SCH (07:56)
[2020-08-27] MEDS: Oxymetazoline HCl 0.05% (30 ML BOT) NS PRN (13:07)
[2020-08-27] MEDS: Pramipexole Di-HCl 0.25 MG TAB PO SCH (20:59)
[2020-08-27] MEDS: Acetaminophen 325 MG TAB PO PRN (20:59)
[2020-08-27] MEDS: Keri Lotion 15 oz BOT TOP SCH (21:01)
[2020-08-27] MEDS: Silver Sulfadiazine 50 GM TUBE TOP SCH (21:02)
[2020-08-28] MEDS: Acetaminophen 325 MG TAB PO PRN ×2 (03:35→19:58)
--- NOTE | 2020-08-28 05:22 | PRG ---
DATE OF SERVICE: 08/27/2020 SUBJECTIVE: The patient is lying in a geriatric chair with legs elevated. He said he is doing good. He said he has a little pain in his legs. Nurses have been changing the dressings nightly, tonight they will take pictures, where I will review these in the morning. Report is that they are improving. OBJECTIVE: GENERAL: The patient is alert, appears comfortable, in no distress. VITAL SIGNS: His temperature is 97.4, pulse 78, respirations 20, O2 saturation 93% on room air, and blood pressure 111/69. LUNGS: Clear. HEART: Regular rate. SKIN: Bruising over the legs and abdomen is diminishing. ASSESSMENT: 1. Severe generalized weakness. a. Complicated by gait abnormality. b. Secondary to deconditioning from recent hospitalization for the edema and cellulitis of the lower extremities. c. Improving, walking much further and transferring easier as of 08/27/2020. 2. Hospitalized at [facility] from 08/14 until 08/22 for. a. Bilateral cellulitis of the lower extremities. b. Acute kidney injury with hyperkalemia that is resolved. c. Acute on chronic diastolic heart failure. 3. Chronic obstructive pulmonary disease. a. History of hypoxic respiratory failure, for which he has supplemental O2 that he only uses when needed. b. Well controlled as of 08/27/2020. 4. Chronic diastolic heart failure. a. No evidence of acute congestive heart failure as of 08/27/2020. 5. Cellulitis of the lower extremities bilateral. a. Hospitalized from 08/14 to 08/22, treated with IV cefepime and vancomycin and now is on cephalexin. b. Complicated by multiple superficial ulcerations. c. Improving as of 08/27/2020. 6. Venous insufficiency of the lower extremities. a. Bilateral venous Doppler studies on 08/15 showed no evidence of DVT. 7. Restless legs syndrome, controlled as of 08/27/2020. 8. Coronary artery disease. a. Status post coronary artery bypass. b. Asymptomatic. 9. Hypertension. 10. Obesity. 11. Bruising across lower abdomen and legs. a. Improving as of 08/27/2020. 12. Chronic low back pain, stable. 13. Oral candidiasis, resolving. PLAN: Continue present care. Continue PT and OT. Job ID: [id number] [facility]
[2020-08-28] MEDS: Ipratropium Bromide 2.5 ml Neb NEB SCH ×2 (05:36→12:40)
[2020-08-28 06:41] LABS: Anion Gap 15 mmol/L (10-20); BUN (Urea Nitrogen) 23 mg/dL (8.4-25.7); Calc. Creatinine Clearance 101 mL/min (70-130); Calcium 8.8 mg/dL (7.8-10.44); Carbon Dioxide 27 mmol/L (23-31); Chloride 99 mmol/L (98-107); Glucose 104 mg/dL (83-110); Sodium 137 mmol/L (136-145)
[2020-08-28 07:54] LABS: %Basophils 1.2 % (0.0-1.0); %Eosinophils 2.9 % (0.0-10.0); %Lymphocytes 17.9 % (21.0-51.0); %Monocytes 10.8 % (0.0-10.0); %Neutrophils 67.1 % (42.0-75.0); Hemoglobin 12.2 g/dL (14.0-18.0); Mean Corpuscular HGB CONC 31.2 g/dL (32.0-36.0); Mean Corpuscular Hemoglobin 29.9 pg (27.0-31.0); Mean Corpuscular Volume 95.8 fL (78.0-98.0); Mean Platelet Volume 7.1 fL (7.4-10.4); Platelet Count 234 thou/uL (130-400); RBC Distribution Width 14.4 % (11.5-14.5); Red Blood Cell (RBC) Count 4.09 mill/uL (4.70-6.10); White Blood Cell (WBC) Count 10.1 thou/uL (4.8-10.8)
[2020-08-28 07:55] LABS: #Basophils 0.1 thou/uL (0.0-0.2); #Eosinphils 0.3 thou/uL (0.0-0.7); #Lymphocytes 1.8 thou/uL (1.20-3.40); #Monocytes 1.1 thou/uL (0.11-0.59); #Neutrophils 6.8 thou/uL (1.40-6.50)
[2020-08-28] MEDS: Nystatin 500,000 UNITS/5 ML UDCUP SSW SCH ×4 (08:31→20:02)
[2020-08-28] MEDS: Gabapentin 300 MG CAP PO SCH ×2 (08:31→20:00)
[2020-08-28] MEDS: Carvedilol 3.125 MG TAB PO SCH ×2 (08:31→20:01)
[2020-08-28] MEDS: Saccharomyces boulardii 250 MG CAP PO SCH (08:31)
[2020-08-28] MEDS: Cephalexin 500 MG CAP PO SCH ×3 (08:31→19:59)
[2020-08-28] MEDS: Fluconazole 100 MG TAB PO SCH (08:31)
[2020-08-28] MEDS: Aspirin 81 mg Enteric Coated Tablet PO SCH (08:31)
[2020-08-28] MEDS: Torsemide 20 MG TAB PO SCH (08:31)
[2020-08-28] MEDS: Enoxaparin Sodium 40 MG/0.4 ML SYRINGE SC SCH (08:32)
[2020-08-28] MEDS: Budesonide 0.5 MG/2 ML NEB NEB SCH ×2 (08:32→20:02)
[2020-08-28] MEDS: Senokot S 8.6-50 MG TAB PO SCH ×2 (08:32→20:02)
--- NOTE | 2020-08-28 11:49 | PRG ---
DATE OF SERVICE: 08/28/2020 SUBJECTIVE: The patient said he is doing good. He had to ask to use his home nasal spray that he uses p.r.n., which is Afrin. This was okay, but we will stop this if used regularly due to possible rebound congestion. The patient said he is just feeling kind of achy all over. He thinks it is because of all the physical exercise he is doing here. He is doing more than what he had been doing at home. He is due to complete his oral antibiotics on 09/01. Legs are reported as doing better. The picture of the legs from early this morning shows legs were markedly improved. There are some superficial ulcerations still present, but these are cleaning up and look excellent of the legs. The redness is all resolving. His superficial ulceration on the dorsum of the left big toe that is improving and there is no edema. The compression wraps seem to be controlling this very well. His lab shows hemoglobin and hematocrit of 12.2 and 39.2, white cell count 10,100, 67% segs, 18% lymphocytes, and platelet count of 234. Sodium 137, potassium 4.0, BUN 23, creatinine 0.88, FBS 104. ASSESSMENT: 1. Severe generalized weakness. a. Complicated by gait abnormality. b. Secondary to deconditioning from recent hospitalization for the edema and cellulitis of the lower extremities. c. Improving. Walking much further and transferring easier as of 08/28. 2. Hospitalized at [facility] from 08/14 until 08/22 for bilateral cellulitis of the lower extremities. a. Acute kidney injury with hyperkalemia that is resolved. b. Acute on chronic diastolic heart failure, that resolved. 3. Chronic obstructive pulmonary disease. a. History of hypoxic respiratory failure, for which he has supplemental O2 that he only uses when needed. b. Well controlled as of 08/28/2020. 4. Chronic diastolic heart failure. a. No evidence of acute congestive heart failure as of 08/28/2020. 5. Cellulitis of the lower extremities, bilateral. a. Hospitalized from 08/14 to 08/22 and treated with IV cefepime and vancomycin and now is continued on oral cephalexin. b. Complicated by multiple superficial ulcerations. c. Marked improvement with continued improvement and the gradual healing of the ulcers on 08/28/2020. 6. Venous insufficiency of the lower extremities. a. Bilateral venous Doppler studies on 08/15 showed no evidence of deep venous thrombosis. 7. Restless legs syndrome, controlled. 8. Coronary artery disease. a. Status post coronary artery bypass. b. Asymptomatic. 9. Hypertension. 10. Obesity. 11. Bruising across lower abdomen and legs. a. Continued to improve as of 08/28. 12. Chronic low back pain. 13. Oral candidiasis, resolving. PLAN: The patient is gradually improving. We will continue present care, PT and OT. [facility] ID[facility] [id number] [facility]
[2020-08-28] MEDS: Guaifenesin DM 100-10/5 ML UDCUP PO PRN (16:05)
[2020-08-28] MEDS: Pramipexole Di-HCl 0.25 MG TAB PO SCH (19:59)
[2020-08-28] MEDS: Keri Lotion 15 oz BOT TOP SCH (20:02)
[2020-08-28] MEDS: Silver Sulfadiazine 50 GM TUBE TOP SCH (20:03)
[2020-08-28] MEDS: Oxymetazoline HCl 0.05% (30 ML BOT) NS PRN (22:30)
[2020-08-29] MEDS: Senokot S 8.6-50 MG TAB PO SCH ×2 (08:50→21:18)
[2020-08-29] MEDS: Torsemide 20 MG TAB PO SCH (08:50)
[2020-08-29] MEDS: Enoxaparin Sodium 40 MG/0.4 ML SYRINGE SC SCH (08:50)
[2020-08-29] MEDS: Aspirin 81 mg Enteric Coated Tablet PO SCH (08:50)
[2020-08-29] MEDS: Carvedilol 3.125 MG TAB PO SCH ×2 (08:50→21:18)
[2020-08-29] MEDS: Cephalexin 500 MG CAP PO SCH ×3 (08:51→21:18)
[2020-08-29] MEDS: Fluconazole 100 MG TAB PO SCH (08:51)
[2020-08-29] MEDS: Gabapentin 300 MG CAP PO SCH ×2 (08:51→21:17)
[2020-08-29] MEDS: Saccharomyces boulardii 250 MG CAP PO SCH (08:52)
[2020-08-29] MEDS: Nystatin 500,000 UNITS/5 ML UDCUP SSW SCH ×4 (08:52→21:16)
[2020-08-29] MEDS: Budesonide 0.5 MG/2 ML NEB NEB SCH ×2 (08:56→21:19)
--- NOTE | 2020-08-29 09:38 | PRG ---
DATE OF SERVICE: 08/29/2020 SUBJECTIVE: The patient said he is doing good today, just a little grumpy. He had already been around to physical therapy this morning. OBJECTIVE: GENERAL: The patient is sitting up in his chair. He is alert, talkative, appears comfortable, in no distress. VITAL SIGNS: His temp is 97.3, pulse 70, respirations 20, O2 saturation 96% on room air, blood pressure 122/68. LUNGS: Clear. HEART: Regular rate. EXTREMITIES: The patient's lower legs are wrapped with the Kerlix and the two- layer Lewis bandages. Pictures that were viewed yesterday showed excellent progress. ASSESSMENT: 1. Severe generalized weakness. a. Complicated by gait abnormality, improving. b. Secondary to deconditioning from recent hospitalization for edema and cellulitis of lower extremity. c. Improving. Walking much further and transferring easier as of 08/29. 2. Hospitalized at [facility] from 08/14 until 08/22 for bilateral cellulitis of lower extremities. a. Acute kidney injury with hyperkalemia that has resolved. b. Acute on chronic diastolic heart failure that has resolved. 3. Chronic obstructive pulmonary disease. a. History of hypoxic respiratory failure for which he has supplemental O2 that he only uses when needed. b. Well controlled as of 08/29/2020. 4. Chronic diastolic heart failure. a. No evidence of acute congestive heart failure as of 08/29/2020. 5. Cellulitis of the lower extremities, bilateral. a. Hospitalized from 08/14 to 08/22 and treated with IV cefepime and vancomycin and now still on oral antibiotics with cephalexin. b. Complicated by multiple superficial ulcerations. c. Marked improvement with continued improvement, gradual healing of the superficial ulcers as of 08/29/2020. 6. Venous insufficiency of the lower extremities. a. Bilateral venous Doppler studies on 08/15 showed no evidence of deep vein thrombosis. 7. Restless legs syndrome, controlled. 8. Coronary artery disease. a. Status post coronary artery bypass. b. Asymptomatic. 9. Hypertension. 10. Obesity. 11. Bruising across the lower abdomen and pelvis. a. Slow gradual improvement as of 08/29. 12. Chronic low back pain. 13. Oral candidiasis, resolving. PLAN: Continue present care. Continue PT and OT. Job ID: [id number] [facility]
[2020-08-29] MEDS: Albuterol Sulfate 2.5 mg/3 ml Neb NEB PRN (12:17)
[2020-08-29] MEDS: Pramipexole Di-HCl 0.25 MG TAB PO SCH (21:18)
[2020-08-29] MEDS: Acetaminophen 325 MG TAB PO PRN (21:18)
[2020-08-29] MEDS: Silver Sulfadiazine 50 GM TUBE TOP SCH (21:37)
[2020-08-29] MEDS: Keri Lotion 15 oz BOT TOP SCH (21:38)
[2020-08-29] MEDS: Oxymetazoline HCl 0.05% (30 ML BOT) NS PRN (22:16)
[2020-08-30] MEDS: Albuterol Sulfate 2.5 mg/3 ml Neb NEB PRN (09:49)
[2020-08-30] MEDS: Senokot S 8.6-50 MG TAB PO SCH ×2 (09:49→21:32)
[2020-08-30] MEDS: Aspirin 81 mg Enteric Coated Tablet PO SCH (09:49)
[2020-08-30] MEDS: Fluconazole 100 MG TAB PO SCH (09:49)
[2020-08-30] MEDS: Cephalexin 500 MG CAP PO SCH ×3 (09:50→21:30)
[2020-08-30] MEDS: Carvedilol 3.125 MG TAB PO SCH ×2 (09:50→21:30)
[2020-08-30] MEDS: Gabapentin 300 MG CAP PO SCH ×2 (09:50→21:32)
[2020-08-30] MEDS: Torsemide 20 MG TAB PO SCH (09:50)
[2020-08-30] MEDS: Saccharomyces boulardii 250 MG CAP PO SCH (09:50)
[2020-08-30] MEDS: Enoxaparin Sodium 40 MG/0.4 ML SYRINGE SC SCH (09:51)
[2020-08-30] MEDS: Budesonide 0.5 MG/2 ML NEB NEB SCH (09:51)
[2020-08-30] MEDS: Nystatin 500,000 UNITS/5 ML UDCUP SSW SCH ×4 (09:52→21:31)
--- NOTE | 2020-08-30 13:45 | RAD ---
EXAM: 2 views chest PROVIDED CLINICAL HISTORY: COPD COMPARISON: 08/16/2020 FINDINGS: Cardiac and mediastinal silhouette is unchanged in appearance. Median sternotomy changes are again se en. Prominence of the main pulmonary artery segment is redemonstrated. No focal consolidation, pleural fluid or pneumothorax evident. IMPRESSION: No evidence for an acute cardiopulmonary process.
[2020-08-30] MEDS: Guaifenesin DM 100-10/5 ML UDCUP PO PRN (16:16)
[2020-08-30] MEDS ORDERED: Mometasone/Formoterol 200/5 60 PUFF INH SCH (19:00)
[2020-08-30] MEDS: Benzonatate 100 MG CAP PO SCH (21:30)
[2020-08-30] MEDS: Pramipexole Di-HCl 0.25 MG TAB PO SCH (21:30)
[2020-08-30] MEDS: Keri Lotion 15 oz BOT TOP SCH (21:30)
[2020-08-30] MEDS: Acetaminophen 325 MG TAB PO PRN (21:31)
[2020-08-30] MEDS: Mometasone/Formoterol 200/5 60 PUFF INH SCH (21:31)
[2020-08-30] MEDS: Silver Sulfadiazine 50 GM TUBE TOP SCH (21:32)
--- NOTE | 2020-08-31 05:11 | PRG ---
DATE OF SERVICE: 08/30/2020 SUBJECTIVE: The patient said his legs are doing a lot better. He feels better today. He still gets a little short of breath, particularly with exertion. The therapist said that when he walks his O2 saturation will drop to 82% on room air, but it stays in the mid 90s on 2 L, and he does better. The patient did not think he was having quite this degree of difficulty with his breathing with exertion when he first was admitted. OBJECTIVE: GENERAL: The patient is sitting up in his chair. He is very talkative, does not appear short of breath. Appears in no distress. VITAL SIGNS: His temp is 97.8, pulse 76, respirations 20, O2 saturation on room air 95%, blood pressure 108/71. His weight is 223. His admission weight was 228. LUNGS: Clear. HEART: Regular rate. EXTREMITIES: Lower extremities wrapped with this two-layer support hose and legs look smaller. ASSESSMENT: 1. Severe generalized weakness. a. Complicated by gait abnormality that is improving, where he is ambulating longer distances with the use of his walker. b. Secondary to deconditioning from recent hospitalization for cellulitis with edema of the lower extremities. c. Overall improving, walking much further, transferring easier as of 08/30. 2. Hospitalized at [facility] from 08/14 until 08/22/2020 for bilateral cellulitis of the lower extremities. a. Acute kidney injury with hyperkalemia that has resolved. b. Acute on chronic diastolic heart failure that has resolved. 3. Chronic obstructive pulmonary disease. a. History of hypoxic respiratory failure, for which he uses supplemental O2 as needed. b. Well controlled. c. Lately is experiencing O2 sats in the 80s with exertion and requiring his supplemental O2 as of 08/30/2020. 4. Chronic diastolic heart failure. a. No evidence of acute congestive failure as of 08/30. 5. Cellulitis of lower extremities, bilateral. a. Hospitalized from 08/14-08/22 and treated with IV cefepime and vancomycin and now on oral antibiotics with cefepime. b. Complicated by multiple superficial ulcerations. c. Marked improvement and continued healing of the superficial ulcerations as of 08/30. 6. Venous insufficiency of the lower extremities. a. Bilateral venous Doppler studies on 08/15 showed no evidence of DVT. 7. Restless legs syndrome, controlled. 8. Coronary artery disease. a. Status post coronary artery bypass. b. Asymptomatic. 9. Hypertension. 10. Obesity. 11. Bruising across the lower abdomen and upper legs. a. Slowly improving as of 08/30. 12. Chronic low back pain, stable. 13. Oral candidiasis, resolving. PLAN: We will continue PT. Chest x-ray today. Continue care of the legs and wound care and the compression dressings on the lower legs. Last day of cephalexin will be on 09/01. Job ID: [id number] [facility]
[2020-08-31] MEDS: Oxymetazoline HCl 0.05% (30 ML BOT) NS PRN (08:32)
[2020-08-31] MEDS: Mometasone/Formoterol 200/5 60 PUFF INH SCH ×2 (08:32→20:26)
[2020-08-31] MEDS: Carvedilol 3.125 MG TAB PO SCH ×2 (08:33→20:24)
[2020-08-31] MEDS: Aspirin 81 mg Enteric Coated Tablet PO SCH (08:33)
[2020-08-31] MEDS: Torsemide 20 MG TAB PO SCH (08:33)
[2020-08-31] MEDS: Senokot S 8.6-50 MG TAB PO SCH ×3 (08:33→20:32)
[2020-08-31] MEDS: Nystatin 500,000 UNITS/5 ML UDCUP SSW SCH ×4 (08:33→20:27)
[2020-08-31] MEDS: Benzonatate 100 MG CAP PO SCH ×3 (08:33→20:23)
[2020-08-31] MEDS: Gabapentin 300 MG CAP PO SCH ×2 (08:33→20:25)
[2020-08-31] MEDS: Saccharomyces boulardii 250 MG CAP PO SCH (08:33)
[2020-08-31] MEDS: Cephalexin 500 MG CAP PO SCH (08:34)
[2020-08-31] MEDS: Enoxaparin Sodium 40 MG/0.4 ML SYRINGE SC SCH (08:35)
[2020-08-31 11:54] VITALS: BMI 31.1
[2020-08-31] MEDS: Keri Lotion 15 oz BOT TOP SCH (20:24)
[2020-08-31] MEDS: Silver Sulfadiazine 50 GM TUBE TOP SCH (20:25)
[2020-08-31] MEDS: Pramipexole Di-HCl 0.25 MG TAB PO SCH (20:28)
[2020-08-31] MEDS: Acetaminophen 325 MG TAB PO PRN (20:29)
[2020-09-01] MEDS: Acetaminophen 325 MG TAB PO PRN ×3 (02:02→23:44)
[2020-09-01] MEDS: Oxymetazoline HCl 0.05% (30 ML BOT) NS PRN ×2 (09:22→23:43)
[2020-09-01] MEDS: Enoxaparin Sodium 40 MG/0.4 ML SYRINGE SC SCH (09:22)
[2020-09-01] MEDS: Gabapentin 300 MG CAP PO SCH ×2 (09:22→20:51)
[2020-09-01] MEDS: Senokot S 8.6-50 MG TAB PO SCH ×2 (09:24→20:53)
[2020-09-01] MEDS: Aspirin 81 mg Enteric Coated Tablet PO SCH (09:24)
[2020-09-01] MEDS: Saccharomyces boulardii 250 MG CAP PO SCH (09:24)
[2020-09-01] MEDS: Benzonatate 100 MG CAP PO SCH ×3 (09:24→20:48)
[2020-09-01] MEDS: Torsemide 20 MG TAB PO SCH (09:24)
[2020-09-01] MEDS: Nystatin 500,000 UNITS/5 ML UDCUP SSW SCH ×4 (09:25→20:52)
[2020-09-01] MEDS: Mometasone/Formoterol 200/5 60 PUFF INH SCH ×2 (09:25→20:52)
[2020-09-01] MEDS: Carvedilol 3.125 MG TAB PO SCH ×2 (09:25→20:49)
[2020-09-01] MEDS: Keri Lotion 15 oz BOT TOP SCH (20:50)
[2020-09-01] MEDS: Pramipexole Di-HCl 0.25 MG TAB PO SCH (20:52)
[2020-09-01] MEDS: Silver Sulfadiazine 50 GM TUBE TOP SCH (20:57)
[2020-09-01] MEDS: Albuterol 200 PUFF (6.7GM INHALER) INH PRN (23:43)
--- NOTE | 2020-09-02 04:21 | PRG ---
DATE OF SERVICE: 09/01/2020 SUBJECTIVE: The patient thinks he is doing better. He says his lower legs are far better than they have been in a long time. He said the little superficial ulcerations are almost totally healed. The legs are being changed in the night and that everyday are improving. The compression wraps are controlling the swelling. He said the leg have been swelled much more than this for over 5 years. He is happy with his progress. He is doing better with physical therapy. He is not short of breath. He has had a little trouble on the left lateral upper leg that has been itching. He has been rubbing this and it has made it a little pink. Skin is a little hard and when he fell the other day suspect this was hit and he bruised that area, although see no black and blue discoloration. OBJECTIVE: GENERAL: The patient is sitting up in his Isabelle chair. He is alert, talkative, appears in no distress. VITAL SIGNS: His temperature is 98.4, pulse 78, respirations 18, O2 saturation 98% on 3 L, and blood pressure 153/92. LUNGS: Clear. HEART: Regular rate. EXTREMITIES: Lower extremities; edema is controlled with compression wraps. The upper left leg on the lateral aspect is pink and a little excoriated and the skin is just a little edematous. This leg may have been scraped and bruised when he fell. Apply the Jasmyn lotion with Kenalog that he could use 4 times a day for the itch. ASSESSMENT: 1. Severe generalized weakness. a. Complicated by gait abnormality that is improving, where he is ambulating longer distances with the use of his walker. b. Secondary to deconditioning from recent hospitalization for cellulitis with edema of the lower extremities. c. Overall improving, walking much further, and transferring better as of 09/01. 2. Hospitalized at [facility] from 08/14 until 08/22/2020, for bilateral cellulitis of the lower extremities. a. Acute kidney injury with hyperkalemia that has resolved. b. Acute on chronic diastolic heart failure that has resolved. 3. Chronic obstructive pulmonary disease. a. History of chronic hypoxic respiratory failure, for which he uses supplemental O2 as he needs. b. Controlled. c. Using O2 intermittently as of 09/01/2020. 4. Chronic diastolic heart failure. a. No evidence of acute congestive heart failure. 5. Cellulitis of lower extremities, bilateral. a. Hospitalized from 08/14 to 08/22 and treated with IV cefepime and vancomycin and now has completed his course of cephalexin. b. Complicated by multiple superficial ulcerations. c. Marked improvement with control of the swelling, resolution of the cellulitis and gradual healing of the superficial ulcerations as of 09/01. 6. Venous insufficiency of the lower extremities. a. Bilateral venous Doppler studies on 08/15 showed no evidence of deep venous thrombosis. b. Exacerbated by the recent cellulitis. c. Controlled with compression wraps to the lower legs. 7. Coronary artery disease. a. Status post coronary artery bypass. b. Asymptomatic. 8. Hypertension. 9. Obesity. 10. Bruising across the lower abdomen and upper legs, continues to improve. 11. Chronic low back pain, stable. 12. Oral candidiasis, resolving. PLAN: The patient is doing better. His chest x-ray showed no infiltrate or evidence of failure. He completes the cephalexin today. We will continue the care of the legs. Wounds are almost healed and the compression wraps are controlling the swelling. The little pink and swelling of the skin of the left lateral upper leg may have been from his fall and scrape of that area. We will use the Ajsmyn Kenalog cream just to help control the itching and we will just observe this. Job ID: [id number] MTDD
[2020-09-02] MEDS: Senokot S 8.6-50 MG TAB PO SCH ×2 (08:26→20:34)
[2020-09-02] MEDS: Gabapentin 300 MG CAP PO SCH ×2 (08:26→20:33)
[2020-09-02] MEDS: Nystatin 500,000 UNITS/5 ML UDCUP SSW SCH (08:26)
[2020-09-02] MEDS: Benzonatate 100 MG CAP PO SCH ×3 (08:26→20:32)
[2020-09-02] MEDS: Aspirin 81 mg Enteric Coated Tablet PO SCH (08:27)
[2020-09-02] MEDS: Enoxaparin Sodium 40 MG/0.4 ML SYRINGE SC SCH (08:27)
[2020-09-02] MEDS: Saccharomyces boulardii 250 MG CAP PO SCH (08:27)
[2020-09-02] MEDS: Carvedilol 3.125 MG TAB PO SCH ×2 (08:27→20:37)
[2020-09-02] MEDS: Torsemide 20 MG TAB PO SCH (08:27)
[2020-09-02] MEDS: Mometasone/Formoterol 200/5 60 PUFF INH SCH ×2 (08:28→21:00)
[2020-09-02] MEDS: Acetaminophen 325 MG TAB PO PRN ×2 (12:36→21:01)
[2020-09-02] MEDS: Pramipexole Di-HCl 0.25 MG TAB PO SCH (20:33)
[2020-09-02] MEDS: Oxymetazoline HCl 0.05% (30 ML BOT) NS PRN (20:40)
[2020-09-02] MEDS: Keri Lotion 15 oz BOT TOP SCH (22:00)
[2020-09-02] MEDS: Silver Sulfadiazine 50 GM TUBE TOP SCH (23:58)
[2020-09-03] MEDS: Albuterol 200 PUFF (6.7GM INHALER) INH PRN (03:05)
[2020-09-03] MEDS: Oxymetazoline HCl 0.05% (30 ML BOT) NS PRN ×2 (08:22→20:02)
[2020-09-03] MEDS: Mometasone/Formoterol 200/5 60 PUFF INH SCH ×2 (08:23→20:02)
[2020-09-03] MEDS: Aspirin 81 mg Enteric Coated Tablet PO SCH (08:24)
[2020-09-03] MEDS: Carvedilol 3.125 MG TAB PO SCH ×2 (08:24→20:03)
[2020-09-03] MEDS: Saccharomyces boulardii 250 MG CAP PO SCH (08:24)
[2020-09-03] MEDS: Benzonatate 100 MG CAP PO SCH ×3 (08:24→20:03)
[2020-09-03] MEDS: Gabapentin 300 MG CAP PO SCH ×2 (08:24→20:34)
[2020-09-03] MEDS: Senokot S 8.6-50 MG TAB PO SCH ×2 (08:24→20:03)
[2020-09-03] MEDS: Torsemide 20 MG TAB PO SCH (08:24)
[2020-09-03] MEDS: Enoxaparin Sodium 40 MG/0.4 ML SYRINGE SC SCH (10:29)
--- NOTE | 2020-09-03 13:06 | PRG ---
DATE OF SERVICE: 09/02/2020 SUBJECTIVE: The patient said he is doing better. His legs feel better. The swelling is all down. He said the little superficial ulcerations are all healed on the left, and almost healed on the right. Legs are smaller than they have been in many years and they feel better. The little itching on the left lateral upper leg is better. The Jasmyn lotion with Kenalog has helped. He is having no trouble with his breathing. OBJECTIVE: GENERAL: The patient is sitting up in a geriatric chair, is alert, appears comfortable, and appears in no distress. VITAL SIGNS: His temp is 98, pulse 69, respirations 20, O2 saturation on room air 92%, blood pressure 127/81. LUNGS: Clear. HEART: Regular rate. EXTREMITIES: Lower extremities have the wounds dressed and has the Kerlix and two-layer Lewis wrap compression dressings. There is no swelling that can be felt through the dressings. The left upper anterior leg is still just a little pink and has excoriated [place], but overall looks better and swelling there looks better. ASSESSMENT: 1. Severe generalized weakness. a. Complicated by gait abnormality that is improving, whereas he is ambulating for longer distances with use of his walker. b. Secondary to deconditioning from recent hospitalization for cellulitis with edema of the lower extremities. c. Overall improving. Walking much further, transferring easier as of 09/02/2020. 2. Hospitalized at [facility] from 08/14/2020 until 08/22/2020 for bilateral cellulitis of the lower extremities. a. Acute kidney injury with hyperkalemia that has resolved. b. Acute on chronic diastolic heart failure, resolved. 3. Chronic obstructive pulmonary disease. a. History of chronic hypoxic respiratory failure, which he uses supplemental O2 as needed. b. Controlled. c. Using O2 intermittently as of 09/02/2020. 4. Chronic diastolic heart failure. a. No evidence of acute congestive heart failure. 5. Cellulitis of lower extremities bilateral. a. Hospitalized from 08/14/2020 to 08/22/2020 and treated with IV cefepime and vancomycin and now has completed his course of cephalexin. b. Complicated by multiple superficial ulcerations. c. Marked improvement with control of the swelling and healing of these superficial ulcerations and cellulitis as of 09/02/2020. 6. Venous insufficiency of the lower extremities. a. Bilateral venous Doppler studies on 08/15/2020, showed no evidence of deep vein thrombosis. b. Exacerbated by recent cellulitis. c. Controlled with compression wraps to the lower extremities. 7. Coronary artery disease. a. Status post coronary artery bypass. b. Asymptomatic. 8. Hypertension. 9. Obesity. 10. Bruising across the lower abdomen, upper legs. Continues to improve. 11. Chronic low back pain, stable. 12. Oral candidiasis, resolved. PLAN: The patient continues to improve. We will continue present care. Continue PT and OT. Job ID: [id number]
[2020-09-03] MEDS: Acetaminophen 325 MG TAB PO PRN (20:02)
[2020-09-03] MEDS: Keri Lotion 15 oz BOT TOP SCH (20:03)
[2020-09-03] MEDS: Pramipexole Di-HCl 0.25 MG TAB PO SCH (20:03)
[2020-09-03] MEDS: Silver Sulfadiazine 50 GM TUBE TOP SCH (20:04)
[2020-09-04] MEDS: Gabapentin 300 MG CAP PO SCH ×2 (08:16→21:14)
[2020-09-04] MEDS: Benzonatate 100 MG CAP PO SCH ×3 (08:16→21:13)
[2020-09-04] MEDS: Aspirin 81 mg Enteric Coated Tablet PO SCH (08:16)
[2020-09-04] MEDS: Torsemide 20 MG TAB PO SCH (08:16)
[2020-09-04] MEDS: Carvedilol 3.125 MG TAB PO SCH ×2 (08:16→21:13)
[2020-09-04] MEDS: Saccharomyces boulardii 250 MG CAP PO SCH (08:16)
[2020-09-04] MEDS: Enoxaparin Sodium 40 MG/0.4 ML SYRINGE SC SCH (08:17)
[2020-09-04] MEDS: Mometasone/Formoterol 200/5 60 PUFF INH SCH ×2 (08:17→21:16)
[2020-09-04] MEDS: Senokot S 8.6-50 MG TAB PO SCH ×2 (08:19→21:16)
--- NOTE | 2020-09-04 12:00 | PRG ---
DATE OF SERVICE: 09/04/2020 SUBJECTIVE: Patient says he is doing okay. He says his legs are better. He still has just a small area on the right leg where the superficial ulcers have not completely healed. He said the swelling of the leg is well controlled. He still has an area of itching and a little swelling over the left lateral upper leg. OBJECTIVE: GENERAL: The patient is sitting up in a chair, alert, comfortable, appears in no distress. VITAL SIGNS: Temperature 96.6, pulse 71, respirations 20, O2 saturation 96% on room air, blood pressure 115/71. LUNGS: Clear. HEART: Regular rate. EXTREMITIES: Lower extremities have 2-layer compression wrap since the swelling is well controlled with this. Ulcerations on the left leg are healed, one on right almost totally healed. He still has a little area of redness along the lateral left upper leg with some little edema on the dependent side primarily just at the skin. This does not feel hot and does not look like cellulitis. It looked like more local irritation and excoriation. ASSESSMENT: 1. Severe generalized weakness. a. Complicated by gait abnormality that has markedly improved where he is ambulating longer distances with the use of his walker. b. Secondary to deconditioning from recent hospitalization for cellulitis with edema of the lower extremities. c. Overall improving. Walking much further, transferring easier as 09/04. 2. Hospitalized at [facility] from 08/14/20 until 08/22/20 for bilateral cellulitis of the lower extremities. a. Acute kidney injury with hyperkalemia that has resolved. b. Acute on chronic diastolic heart failure, resolved. 3. Chronic obstructive pulmonary disease. a. History of chronic hypoxic respiratory failure for which he uses supplemental O2 as needed. b. Controlled. c. Using the O2 intermittently as needed as of 09/04/20. 4. Chronic diastolic heart failure. a. No evidence of acute congestive heart failure as of 09/04/20. 5. Cellulitis of the lower extremity. a. Hospitalized from 08/14 until 08/22/20, treated with IV cefepime and vancomycin and has now completed his course of antibiotics. b. Complicated by multiple superficial ulcerations that are healing. c. Marked improvement. 6. Venous insufficiency of the lower extremity. a. Bilateral venous Doppler study on 08/15 showed no evidence of DVT. b. Exacerbated by recent cellulitis. c. Controlled with compression wraps of the lower extremities. 7. Coronary artery disease. a. Status post coronary artery bypass. b. Asymptomatic. 8. Hypertension. 9. Obesity. 10. Bruise across lower abdomen and upper legs. Continues to improve. 11. Chronic low back pain. 12. Oral candidiasis, resolved. 13. Area of irritation and itching of the left lateral upper leg. PLAN: Continue present care. Continue PT and OT. Patient will continue to use the Jasmyn Kenalog, but may use the [place] compresses 4 times a day as needed for itch. Job ID: [id number]
[2020-09-04] MEDS: Acetaminophen 325 MG TAB PO PRN ×2 (15:16→22:38)
[2020-09-04] MEDS: Keri Lotion 15 oz BOT TOP SCH (21:14)
[2020-09-04] MEDS: Silver Sulfadiazine 50 GM TUBE TOP SCH (21:15)
[2020-09-04] MEDS: Pramipexole Di-HCl 0.25 MG TAB PO SCH (21:15)
[2020-09-04] MEDS: Albuterol 200 PUFF (6.7GM INHALER) INH PRN (21:22)
[2020-09-04] MEDS: Oxymetazoline HCl 0.05% (30 ML BOT) NS PRN (21:22)
[2020-09-05] MEDS: Enoxaparin Sodium 40 MG/0.4 ML SYRINGE SC SCH (08:04)
[2020-09-05] MEDS: Aspirin 81 mg Enteric Coated Tablet PO SCH (08:05)
[2020-09-05] MEDS: Senokot S 8.6-50 MG TAB PO SCH ×2 (08:05→20:38)
[2020-09-05] MEDS: Saccharomyces boulardii 250 MG CAP PO SCH (08:05)
[2020-09-05] MEDS: Torsemide 20 MG TAB PO SCH (08:06)
[2020-09-05] MEDS: Gabapentin 300 MG CAP PO SCH ×2 (08:06→20:36)
[2020-09-05] MEDS: Benzonatate 100 MG CAP PO SCH ×3 (08:06→20:38)
[2020-09-05] MEDS: Carvedilol 3.125 MG TAB PO SCH ×2 (08:07→20:37)
[2020-09-05] MEDS: Mometasone/Formoterol 200/5 60 PUFF INH SCH ×2 (08:14→20:39)
--- NOTE | 2020-09-05 10:02 | PRG ---
DATE OF SERVICE: 09/05/2020 SUBJECTIVE: Patient says he is doing very well. He says he is making great progress with his therapy. He said that the legs are doing very well and they are staying very small with the wrapping. OBJECTIVE: GENERAL: The patient is alert. He is in Physical Therapy, sitting in a wheelchair. He is alert, talkative, appears comfortable. VITAL SIGNS: Temperature 97.8, pulse 78, respirations 18, O2 saturation 94% on room air, blood pressure 130/80. LUNGS: Clear. HEART: Regular rate. LOWER EXTREMITIES: Wrapped with Lewis bandages. There is no swelling and reportedly the wounds are all healed. ASSESSMENT: 1. Severe generalized weakness. a. Complicated by gait abnormality that has markedly improved, where he is walking longer distance and transferring well as of 09/05. b. Secondary to deconditioning from recent hospitalization for cellulitis and edema of the lower extremities. c. Overall improved. 2. Hospitalized at [facility] from 08/14/2020 until 08/22/2020 for: a. bilateral cellulitis of lower extremities. b. Acute kidney injury with hyperkalemia that has resolved. c. Acute on chronic diastolic heart failure that has resolved. 3. Chronic obstructive pulmonary disease. a. History of chronic hypoxic respiratory failure, for which he uses supplemental O2 as needed. 4. Chronic diastolic heart failure. a. No evidence of acute congestive heart failure as of 09/05. 5. Cellulitis of the lower extremities. a. Hospitalized from 08/14 until 08/22, treated with IV cefepime and vancomycin. b. Complicated by multiple superficial ulcerations of the lower extremities that are healing. c. Resolved as of 09/05. 6. Venous insufficiency of the lower extremities. a. Bilateral venous Doppler study on 08/15 showed no evidence of DVT. b. Exacerbated by recent cellulitis. c. Controlled with compression wraps to the lower extremities. 7. Coronary artery disease. a. Status post coronary artery bypass. b. Asymptomatic. 8. Hypertension. 9. Obesity. 10. Bruises across lower abdomen and upper legs, resolving. 11. Chronic low back pain, stable. 12. Oral candidiasis, resolved. 13. Area of irritation and itching on the left lateral upper leg, improving. PLAN: Continue present care. Planning on discharge tomorrow with Home Health assisting, he has a caregiver who also assists. Job ID: [id number]
[2020-09-05] MEDS: Acetaminophen 325 MG TAB PO PRN (13:50)
[2020-09-05] MEDS: Pramipexole Di-HCl 0.25 MG TAB PO SCH (20:38)
[2020-09-05] MEDS: Keri Lotion 15 oz BOT TOP SCH (20:39)
[2020-09-05] MEDS: Silver Sulfadiazine 50 GM TUBE TOP SCH (20:40)
[2020-09-06 07:25] VITALS: BP 124/78; TEMP 97.8
[2020-09-06] MEDS: Gabapentin 300 MG CAP PO SCH (09:28)
[2020-09-06] MEDS: Enoxaparin Sodium 40 MG/0.4 ML SYRINGE SC SCH (09:28)
[2020-09-06] MEDS: Aspirin 81 mg Enteric Coated Tablet PO SCH (09:28)
[2020-09-06] MEDS: Carvedilol 3.125 MG TAB PO SCH (09:29)
[2020-09-06] MEDS: Benzonatate 100 MG CAP PO SCH (09:29)
[2020-09-06] MEDS: Torsemide 20 MG TAB PO SCH (09:29)
[2020-09-06] MEDS: Saccharomyces boulardii 250 MG CAP PO SCH (09:29)
[2020-09-06] MEDS: Mometasone/Formoterol 200/5 60 PUFF INH SCH (09:29)
[2020-09-06] MEDS: Senokot S 8.6-50 MG TAB PO SCH (09:29)
--- NOTE | 2020-09-06 13:46 | DIS ---
DATE OF ADMISSION: 08/22/2020 DATE OF DISCHARGE: 09/06/2020 FINAL DIAGNOSES: 1. Severe generalized weakness. a. Complicated by gait abnormality that has markedly improved where he is walking up to 100 feet several times a day. Transferring with only standby assistance as of 09/06/2020. b. Secondary to deconditioning from recent hospitalization for cellulitis and edema of the lower extremity. c. Marked improvement. 2. Hospitalized at [facility] from 08/14/20 until 08/22/20 for. a. Bilateral cellulitis of the lower extremity. b. Acute kidney injury with hyperkalemia that has resolved. c. Acute on chronic diastolic heart failure that is resolved. 3. Chronic obstructive pulmonary disease. a. History of chronic hypoxic respiratory failure for which he uses supplemental O2 as needed. 4. Chronic diastolic heart failure. a. No evidence of acute CHF as of 09/06/20. 5. Cellulitis of the lower extremity. a. Hospitalized from 08/14 until 08/22, treated with IV cefepime and vancomycin. b. Complicated by multiple superficial ulcerations of the lower extremity that are almost totally healed. c. Cellulitis has resolved. 6. Venous insufficiency of the lower extremity. a. Bilateral venous Doppler studies on 08/15 showed no evidence of DVT. b. Exacerbated by recent cellulitis. c. Controlled with compression wraps to the lower extremities. 7. Coronary artery disease. a. Status post coronary artery bypass. b. Asymptomatic. 8. Hypertension. 9. Bruising across the lower abdomen and upper extremities, resolving. 10. Chronic low back pain, stable. 11. Oral candidiasis, resolved. SUMMARY: Patient is a 75-year-old white male, who has a history of COPD with chronic hypoxic respiratory failure, for which he uses supplemental O2; coronary artery disease, for which he has undergone coronary artery bypass, has been asymptomatic; hypertension; chronic diastolic heart failure; chronic edema of the lower extremities, probably from venous insufficiency and complicated by episodes of CHF. The patient lives alone at home and has been independent of his ADLs, but has a caregiver who assists him and also has home health that comes in and assists him. He was hospitalized at [facility] from 08/14 until 08/22/20 for fever, marked redness and swelling of the lower legs secondary to cellulitis. His venous doppler studies of lower extremity showed no evidence of DVT. He was treated with elevation of the legs. IV antibiotics were cefepime and vancomycin. He continued to improve and the cellulitis was complicated by multiple superficial ulcerations on the lower extremity. He was left extremely weak with marked gait abnormality with the sores on his legs and the edema. He was sent to [facility] on 08/22/20 for completion of an oral course of antibiotics with cephalexin and for wound care and physical therapy. On his initial examination, his lungs were clear. He was using the O2 supplementally just when he needed it and also some with exercise when his O2 saturation would tend to drop. His legs were very edematous and still very pink and a little warm and had multiple superficial ulcerations on both the legs. He completed 7 day course of the cephalexin. The wounds on the legs were cleaned daily with saline and then Silvadene cream applied and then overlying Adaptic and gauze applied. The legs were then wrapped with Kerlix and 2 layers of 4 inch Lewis bandages from the base of the toes to just below the knees. This compression wrap helped control the edema and gradually the edema completely resolved. He did develop a little edema in the upper legs and some irritation of the skin from his excoriation. This was handled with Jasmyn lotion with Kenalog, which seemed to help. His legs markedly improved, the edema improved and was controlled with the wraps. The ulcerations were all but healed except for a couple of spots of less than a centimeter of superficial ulcerations that were not quite healed but expect to heal with a little more time. He worked with physical therapy and occupational therapy, made excellent progress. By the time of his discharge, he was walking up to 150 feet at least 2 times a day with his walker and standby assistance. His transferring was just standby assistance. His chest x-ray that was done on 08/30 showed no acute cardiopulmonary process and looked unchanged from an x-ray of 08/16. There was no evidence of any failure. His last lab studies on 08/28 showed an H and H of 12.2 and 39.2, white cell count 10,100, platelets are 234. Sodium 137, potassium 4.0, BUN 23, creatinine 0.88, GFR 84, glucose 104. DISPOSITION: The patient was discharged on a regular diet with no added salt. Activities, ambulate with the use of a walker. Wound care and care of the lower extremities. The wounds should be cleaned daily with saline and then a small amount of Silvadene cream applied, overlaid with an Adaptic and gauze and then apply a Kerlix and then wrap the legs from the base of the toes to just below the knees with two layers of 4 inch Lewis wrappings. Once the wounds are healed, may try to progress patient to low-pressure knee-high support hose. Physical Therapy will look in on patient and continue in-home PT and OT. He also has a caregiver who will be assisting with his care. MEDICATION: 1. Tylenol 325 mg 2 every 4 hours as needed. 2. Albuterol inhaler one puff every 4 hours as needed. 3. Artificial Tears 2 drops to the eyes 4 times a day as needed. 4. Aspirin 81 mg daily. 5. Tessalon 100 mg t.i.d. as needed. 6. Carvedilol 3.125 mg b.i.d. 7. Gabapentin 600 mg b.i.d. 8. Robitussin DM 10 mL every 4 hours as needed. 9. Symbicort 160/4.5 two inhalations b.i.d. 10. Jasmyn lotion with Kenalog 15 ounces/200 mg, apply to the legs daily. 11. Pantoprazole 40 mg daily. 12. Florastor 250 mg daily. 13. Senokot-S 2 b.i.d. 14. Torsemide 20 mg daily. 15. O2 at 2 L by nasal cannula when sleeping and p.r.n. FOLLOWUP: The patient will need to see his primary care physician, Dr. Dozier, in 2 weeks with a CBC and basic metabolic panel. CODE STATUS: Full code. Job ID: [id number] MTDD
== END 2020-09-06 10:45 | disposition home or self-care (01) | DRG 948 ==
LOC: MADMS 14:43
PROVIDERS: ADMIT Family Medicine; ATTEND Family Medicine
DX: R53.1 Weakness (principal); I13.0 Hypertensive heart and chronic kidney disease with heart failure and stage 1 through stage 4 chronic kidney disease, or unspecified chronic kidney disease; L03.115 Cellulitis of right lower limb; L03.116 Cellulitis of left lower limb; B37.0 Candidal stomatitis; I50.32 Chronic diastolic (congestive) heart failure; J96.11 Chronic respiratory failure with hypoxia; J44.9 Chronic obstructive pulmonary disease, unspecified; N18.9 Chronic kidney disease, unspecified; I25.10 Atherosclerotic heart disease of native coronary artery without angina pectoris; E78.5 Hyperlipidemia, unspecified; G25.81 Restless legs syndrome; R26.9 Unspecified abnormalities of gait and mobility; R53.81 Other malaise; I87.2 Venous insufficiency (chronic) (peripheral); E66.9 Obesity, unspecified; G89.29 Other chronic pain; M54.9 Dorsalgia, unspecified; Z95.1 Presence of aortocoronary bypass graft; Z88.8 Allergy status to other drugs, medicaments and biological substances; Z99.81 Dependence on supplemental oxygen; Z87.891 Personal history of nicotine dependence; Z79.82 Long term (current) use of aspirin; Z79.899 Other long term (current) drug therapy; Z68.29 Body mass index [BMI] 29.0-29.9, adult
CPT/HCPCS: 36415; 71046; 80048; 80053; 85025; 94664; J1650; J7611; J7626